=== PATIENT | female | born 1930 | race Caucasian/White ===

== ENCOUNTER → 2016-04-14 | Outpatient (CLI) | payer OTHER, MEDICARE ==
[~2016-04-14] MED LIST: CHOL1000 PO; FERR325T51 PO; ONDA4TAB46 PO; POLY335019 PO; SNK PO; ZOLE5INJ IV
[2016-04-14 13:57] VITALS: BP 144/83; PULSE 87; TEMP 36.7; O2SAT 96
--- NOTE | 2016-04-14 16:12 | Radiation Oncology Follow-Up ---
Radiation Oncology Follow-Up Date of Visit Apr 14, 2016. 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 She was initially treated with a course of antibiotic therapy and had persistence of disease so then she received Rituxan with chemotherapy for 4 cycles. She did continue to have persistence of disease and was then found to have a right upper lobe mass which was also consistent with MALT lymphoma (biopsy proven in January 2011). The patient was closely followed with observation as she was initially asymptomatic. Her most recent PET scan was 05/16/2013 which showed a persistent right upper lobe mass with metabolic activity as well as metabolic activity in the stomach. More recently, the patient was having nausea vomiting and pain in the upper abdomen. She was evaluated by Dr. Court Duenas who performed a upper endoscopy and a endoscopic ultrasound on 06/25/2015 which showed many enlarged lymph nodes in the celiac region as well as wall thickening in the antrum of the stomach. Repeat biopsy was completed in the gastric antrum which showed persistent MALT lymphoma. She did have a MRI of the abdomen completed on 2015 which did show lymphadenopathy in gastric antrum wall thickening compatible with gastric multiple lymphoma. Also noted was distention of the proximal stomach suggestive of at least a partial obstruction. Dr. Stevan Vega has follow the patient and recommended consideration of radiation therapy to the stomach to alleviate the patient's obstructive symptoms. She completed radiation therapy 09/10/2015. She received 3000 cGy. (Mallory Mujica PA-C) Interim History She's been doing well over the past 6 months. She denies any abdominal discomfort. She denies any nausea or vomiting. She's had no change in bowel habits. She is with her daughter here today. She states that she always eats a good dinner. She may eat less for breakfast and lunch. She was seen in follow-up by gastroenterology. Dr. Duenas saw her on 01/22/2016. There is discussion of endoscopy. He was going to review this with oncology. There is no recent endoscopy in the procedure. She was seen by Dr. Vega in medical oncology 01/12/2016. His plan was to continue observation and see her again in 6 months. (Mallory Mujica PA-C) Allergies Coded Allergies: Aspirin (Unverified Adverse Reaction, Severe, bleeding ulcer, 07/24/15) Fish Oil (Unverified Adverse Reaction, Severe, bleeding ulcer, 07/24/15) Ibandronic Acid (Unverified Adverse Reaction, Severe, bleeding ulcer, 07/23) Home Medications Scheduled Cholecalciferol (Vitamin D3), 1 TAB PO DAILY Ferrous Sulfate (Iron Supplement), 1 TAB PO DAILY Ondansetron Hcl (Zofran), 4 MG PO Q8H Senna (Senna Lax), 8.6 MG PO QAM Zoledronic Acid (Reclast), 5 MG IV YEARLY Scheduled PRN Polyethylene Glycol 3350 (Miralax), 17 GM PO DAILY PRN for prn Review of Systems Gastrointestinal: Symptoms: Constipation GI Comments: takes senna daily Oral: Symptoms: No Problems Respiratory: Symptoms: WNL Urinary: Symptoms: Incontinence, Frequency Comments: occ frequency, and has urgency Skin: Symptoms: No Problems (Mallory Mujica PA-C) Physical Exam Vital Signs Date Time Temp Pulse Resp B/P Pulse Ox O2 Delivery O2 Flow Rate FiO2 04/14/16 13:57 36.7 87 16 144/83 96 Pain: Pain Onset: several years ago Pain Duration: comes and goes Side: Bilateral Patient Pain Scale: 0 - 10 Initial Pain Intensity: 1.0 Pain Description: Aching Additional Comments: gets worse at times Fatigue: None General Appearance: no apparent distress Eyes: normal inspection ENT: normal ENT inspection, hearing grossly normal Neck: no adenopathy Respiratory/Chest: lungs clear, no respiratory distress, no accessory muscle use Cardiovascular: regular rate, rhythm, no gallop, no murmur Abdomen: normal bowel sounds, non tender, soft, no organomegaly, no pulsatile mass Extremities: no pedal edema Neurologic/Psychiatric: no motor/sensory deficits, alert, normal mood/affect Skin: warm/dry Lymphatic: no adenopathy (Mallory Mujica PA-C) Assessment & Plan Continue regular follow-up with Dr. Vega in medical oncology. She has appointment to see him in July. A follow-up appointment with our office was not given. She recalls she has any questions or concerns would be happy to see her. She may return if recommended by Dr. Vega. (Mallory Mujica PA-C) I agree with note created by Mallory Mujica PA-C. I reviewed the patient's chart and information with her. (Veeral. Vega MD) Total Time In Follow-Up I spent 15 minutes speaking to the patient performing examination. I spent 15 minutes reviewing information and completing this note. (Mallory Mujica PA-C) Copy To Adrienne Arshad D.O.; Court Duenas, ; Stevan Vega M.D.
== END | disposition home or self-care (01) ==
LOC: C.ONC 13:47
PROVIDERS: ATTEND Radiology Radiation Oncology
DX: Z08 Encounter for follow-up examination after completed treatment for malignant neoplasm (principal); Z92.3 Personal history of irradiation; Z85.72 Personal history of non-Hodgkin lymphomas

== ENCOUNTER 2020-06-07 17:19 | Inpatient (IN) ==
--- NOTE | 2020-06-07 17:28 | Emergency Department Note ---
Impression & Plan Acute ischemic right MCA stroke, Acute UTI, Hypertension ED Provider Note NAME: ALAINA COMBS AGE: 89 SEX: F : 1930 ARRIVES VIA: Ambulance INFORMANT: Patient, ED PROVIDER(S): James Galicia MD Chief Complaint: Confusion, strokelike symptoms HPI: Patient does present via EMS due to concern for strokelike symptoms. The patient reportedly had woken up from a nap just prior to arrival and the patient's last known well was 3:30 PM. Patient does have some baseline confusion but is typically verbally responsive. Upon awakening from her nap the patient was noted to have left-sided facial droop left sided weakness and right gaze preference. The patient does not respond to commands. The patient does m ove her right upper and bilateral lower extremities. BSG prior to arrival was in the 100s. No reported trauma. Patient was hypertensive initially to 209/104. ROS: See HPI for pertinent positives and negatives. A total of 10 systems were reviewed and otherwise negative. Past medical history: See below Surgical history: See below Social history: See below Physical Exam: GENERAL: Mild distress, right gaze preference, left facial droop noted. EYE EXAM: Normal conjunctiva. PERRL, no anisocoria and EOM's grossly intact w/o pain. NECK: Supple, no nuchal rigidity, no adenopathy. No signs of meningismus. LUNGS: Clear to auscultation. Normal chest wall mechanics. HEART: NSR, no MRG. ABDOMEN: Abdomen soft, non-tender, normo-active bowel sounds, no masses, no rebound or guarding. BACK: No CVA TTP. SKIN: No rashes and no bruising. UPPER EXTREMITIES: Upper extremities are grossly normal. LOWER EXTREMITIES: Grossly normal, no edema. NEURO EXAM: Awake, does not follow commands, spontaneous motor movement of the right upper and bilateral lower extremities, left upper extremity paresis with left facial droop and right-sided gaze preference Differential diagnoses: Infection, dehydration, metabolic abnormality, hypo/hyperglycemia, electrolyte disturbance, anemia, hypoxia, cardiac sources, intracerebral event, toxicologic, neurologic, as well as other pathologies. Course: Patient was seen and evaluated the bedside. Full history physical exam was performed. EKG: Indication: Strokelike symptoms Normal sinus rhythm, rate in V5, normal intervals, normal axis, no obvious ST changes or T WI. Imaging Studies: See below Cardiac monitoring: An order was placed for continuous cardiac monitoring. The monitor shows a rate of 84 with sinus rhythm. MDM: I did evaluate the patient at the bedside and upon recognizing the patient strokelike symptoms I did initiate a code stroke. There was no prior EMS: For possible code stroke. The patient symptom onset was approximate 2 hours prior to arrival. I did speak with Dr. Zhang with telestroke neurology at [facility]. Family was to present shortly. The patient did have blood work completed on CT head and CT angiography of the head neck. The patient had a negative Noncon CT of the head. CT angiography of the neck did show a likely mass in the right upper chest. The patient's CT angiography of the head shows a right MCA occlusion. Dr. Ramos had discussed the findings with the patient's daughter who is present at the bedside and the POA. They do not recommend embolectomy or thrombectomy at this time as she is a DNR. The daughter was counseled on the possible increased risk of bleeding either from the chest of the head but she understands this. We also discussed that the patient is DNR/DNI no aggressive measures. The patient's daughter does consent to treat with TPA after discussing the risks and benefits. This was ordered. I did speak with the charge nurse in order to ensure that pharmacy would send it up. Patient has a normal white count H&H and platelet count. BSG was 103. Urinalysis does show the possibility of infection with leuks whites and bacteria. Rocephin was ordered. I did speak with the on-call hospitalist JAYLENE Ruggiero and the patient was admitted by the hospitalist Dr. Brett vazquez. I did reassess the patient several times and the patient was having some mild improvement in her left upper extremity weakness. Critical Care: I have personally spent 65 minutes of critical care time in direct management of this patient. This includes bedside care, interpretation of diagnostic studies, and testing, discussion with consultants, patient, and family members, and other require inpatient management activities. This 65 minutes is in excess of all separately billable procedures. 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" Social History Smoking Status: Unknown if ever smoked Preferred Language: Estonian Allergies Allergies Allergy/AdvReac Type Severity Reaction Status Date / Time aspirin AdvReac Severe bleeding Unverified 06/07/20 18:43 ulcer fish oil AdvReac Severe bleeding Unverified 06/07/20 18:43 ulcer Ibandronic Acid AdvReac Severe bleeding Uncoded 06/07/20 18:43 ulcer Home Meds Home Medications Medication Instructions Recorded Confirmed cholecalciferol (vitamin D3) 25 mcg PO QAM 06/07/20 06/07/20 [Vitamin D3] ferrous sulfate 325 mg PO QAM 06/07/20 06/07/20 memantine 10 mg PO BID 06/07/20 06/07/20 pantoprazole 40 mg PO QAM 06/07/20 06/07/20 sennosides [senna] 4.3 mg PO 3XWK 06/07/20 06/07/20 Results & Data (ED) Vital Signs Vital Signs - 24 hr 06/07/20 17:20 06/07/20 17:25 06/07/20 17:27 Temperature 36.5 C Temperature Source Oral Pulse Rate 100 H 96 H Pulse Rate from SpO2 Sensor 98 H Respiratory Rate 18 Respiratory Effort / Characteristics Non-Labored Spontaneous Respiratory Depth Normal Blood Pressure 209/104 H Blood Pressure [Left Arm] Blood Pressure Mean 139 Blood Pressure Mean [Left Arm] Blood Pressure Position Lying Blood Pressure Position [Left Arm] Pulse Oximetry 97 97 Oxygen Delivery Method Room Air Room Air Sepsis Recent Fever Within 48 Hours No Sepsis New/Unexplained Change in Mental Status No Sepsis Action Taken by Nursing No Action Required 06/07/20 17:30 06/07/20 17:40 06/07/20 18:00 Temperature Temperature Source Pulse Rate 95 H 87 89 Pulse Rate from SpO2 Sensor 84 85 93 H Respiratory Rate 17 19 15 Respiratory Effort / Characteristics Respiratory Depth Blood Pressure Blood Pressure [Left Arm] Blood Pressure Mean Blood Pressure Mean [Left Arm] Blood Pressure Position Blood Pressure Position [Left Arm] Pulse Oximetry 99 97 98 Oxygen Delivery Method Sepsis Recent Fever Within 48 Hours Sepsis New/Unexplained Change in Mental Status Sepsis Action Taken by Nursing 06/07/20 18:01 06/07/20 18:02 06/07/20 18:11 Temperature Temperature Source Pulse Rate 88 90 Pulse Rate from SpO2 Sensor 89 88 Respiratory Rate 18 17 Respiratory Effort / Characteristics Respiratory Depth Blood Pressure 167/98 H 173/75 H Blood Pressure [Left Arm] 168/98 H Blood Pressure Mean 121 107 Blood Pressure Mean [Left Arm] 121 Blood Pressure Position Blood Pressure Position [Left Arm] Lying Pulse Oximetry 97 98 Oxygen Delivery Method Sepsis Recent Fever Within 48 Hours Sepsis New/Unexplained Change in Mental Status Sepsis Action Taken by Nursing 06/07/20 18:15 06/07/20 18:30 06/07/20 18:33 Temperature Temperature Source Pulse Rate 84 85 80 Pulse Rate from SpO2 Sensor 83 84 80 Respiratory Rate 16 14 19 Respiratory Effort / Characteristics Respiratory Depth Blood Pressure 172/117 H Blood Pressure [Left Arm] Blood Pressure Mean 135 Blood Pressure Mean [Left Arm] Blood Pressure Position Blood Pressure Position [Left Arm] Pulse Oximetry 96 92 92 Oxygen Delivery Method Sepsis Recent Fever Within 48 Hours Sepsis New/Unexplained Change in Mental Status Sepsis Action Taken by Nursing 06/07/20 18:41 06/07/20 18:45 06/07/20 18:46 Temperature Temperature Source Pulse Rate 75 73 75 Pulse Rate from SpO2 Sensor 74 76 75 Respiratory Rate 17 15 20 Respiratory Effort / Characteristics Respiratory Depth Blood Pressure 154/72 H 167/83 H Blood Pressure [Left Arm] Blood Pressure Mean 99 111 Blood Pressure Mean [Left Arm] Blood Pressure Position Blood Pressure Position [Left Arm] Pulse Oximetry 95 93 95 Oxygen Delivery Method Sepsis Recent Fever Within 48 Hours Sepsis New/Unexplained Change in Mental Status Sepsis Action Taken by Nursing 06/07/20 18:51 06/07/20 18:52 06/07/20 18:55 Temperature Temperature Source Pulse Rate 76 77 76 Pulse Rate from SpO2 Sensor 77 76 77 Respiratory Rate 18 19 17 Respiratory Effort / Characteristics Respiratory Depth Blood Pressure 158/79 H Blood Pressure [Left Arm] Blood Pressure Mean 105 Blood Pressure Mean [Left Arm] Blood Pressure Position Blood Pressure Position [Left Arm] Pulse Oximetry 95 96 96 Oxygen Delivery Method Sepsis Recent Fever Within 48 Hours Sepsis New/Unexplained Change in Mental Status Sepsis Action Taken by Nursing 06/07/20 18:56 06/07/20 19:00 06/07/20 19:05 Temperature Temperature Source Pulse Rate 72 75 75 Pulse Rate from SpO2 Sensor 76 77 75 Respiratory Rate 17 18 17 Respiratory Effort / Characteristics Respiratory Depth Blood Pressure 163/82 H 169/92 H Blood Pressure [Left Arm] Blood Pressure Mean 109 117 Blood Pressure Mean [Left Arm] Blood Pressure Position Blood Pressure Position [Left Arm] Pulse Oximetry 97 97 97 Oxygen Delivery Method Room Air Sepsis Recent Fever Within 48 Hours Sepsis New/Unexplained Change in Mental Status Sepsis Action Taken by Nursing 06/07/20 19:06 06/07/20 19:10 06/07/20 19:11 Temperature Temperature Source Pulse Rate 76 79 81 Pulse Rate from SpO2 Sensor 74 77 81 Respiratory Rate 15 15 17 Respiratory Effort / Characteristics Respiratory Depth Blood Pressure 148/76 H 168/97 H Blood Pressure [Left Arm] Blood Pressure Mean 100 120 Blood Pressure Mean [Left Arm] Blood Pressure Position Blood Pressure Position [Left Arm] Pulse Oximetry 97 97 96 Oxygen Delivery Method Sepsis Recent Fever Within 48 Hours Sepsis New/Unexplained Change in Mental Status Sepsis Action Taken by Nursing 06/07/20 19:15 06/07/20 19:17 06/07/20 19:18 Temperature Temperature Source Pulse Rate 76 80 74 Pulse Rate from SpO2 Sensor 76 77 76 Respiratory Rate 17 14 21 Respiratory Effort / Characteristics Respiratory Depth Blood Pressure 171/64 H Blood Pressure [Left Arm] Blood Pressure Mean 99 Blood Pressure Mean [Left Arm] Blood Pressure Position Blood Pressure Position [Left Arm] Pulse Oximetry 96 96 96 Oxygen Delivery Method Sepsis Recent Fever Within 48 Hours Sepsis New/Unexplained Change in Mental Status Sepsis Action Taken by Nursing 06/07/20 19:20 06/07/20 19:21 06/07/20 19:25 Temperature Temperature Source Pulse Rate 78 79 77 Pulse Rate from SpO2 Sensor 77 78 78 Respiratory Rate 18 14 16 Respiratory Effort / Characteristics Respiratory Depth Blood Pressure 174/86 H Blood Pressure [Left Arm] Blood Pressure Mean 115 Blood Pressure Mean [Left Arm] Blood Pressure Position Blood Pressure Position [Left Arm] Pulse Oximetry 96 96 95 Oxygen Delivery Method Sepsis Recent Fever Within 48 Hours Sepsis New/Unexplained Change in Mental Status Sepsis Action Taken by Nursing 06/07/20 19:29 06/07/20 19:30 06/07/20 19:31 Temperature Temperature Source Pulse Rate 76 80 75 Pulse Rate from SpO2 Sensor 76 80 75 Respiratory Rate 16 16 16 Respiratory Effort / Characteristics Respiratory Depth Blood Pressure 170/68 H 180/79 H Blood Pressure [Left Arm] Blood Pressure Mean 102 112 Blood Pressure Mean [Left Arm] Blood Pressure Position Blood Pressure Position [Left Arm] Pulse Oximetry 95 96 95 Oxygen Delivery Method Sepsis Recent Fever Within 48 Hours Sepsis New/Unexplained Change in Mental Status Sepsis Action Taken by Nursing 06/07/20 19:35 06/07/20 19:40 Temperature Temperature Source Pulse Rate 75 76 Pulse Rate from SpO2 Sensor 76 75 Respiratory Rate 16 15 Respiratory Effort / Characteristics Respiratory Depth Blood Pressure 148/78 H Blood Pressure [Left Arm] Blood Pressure Mean 101 Blood Pressure Mean [Left Arm] Blood Pressure Position Blood Pressure Position [Left Arm] Pulse Oximetry 94 94 Oxygen Delivery Method Room Air Sepsis Recent Fever Within 48 Hours Sepsis New/Unexplained Change in Mental Status Sepsis Action Taken by [facility]dc Medications Current Medication List: was personally reviewed by me Laboratory Data Attestation: I reviewed the patient's lab results. Result diagrams: 06/07/20 17:50 06/07/20 17:50 Lab Results 06/07/20 06/07/20 06/07/20 Range/Units 17:30 17:30 17:50 WBC 10.38 (4.8-10.8) K/uL RBC 4.40 (4.2-5.4) M/uL Hgb 14.3 (12.0-16.0) g/dL Hct 42.0 (37-47) % MCV 95.5 (80-100) fL MCH 32.5 (25-34) pg MCHC 34.0 (32-36) g/dL RDW Std Deviation 47.4 H (36.4-46.3) fL RDW Coeff of Marisela 13.4 (11.5-14.5) % Plt Count 281 (130-400) K/uL MPV 12.1 H (7.4-10.4) fL Immature Gran % (Auto) 0.4 % Neut % (Auto) 74.3 % Lymph % (Auto) 14.1 % [place] % (Auto) 9.3 % Eos % (Auto) 1.6 % Baso % (Auto) 0.3 % Neut # (Auto) 7.71 H (1.4-6.5) K/uL Lymph # (Auto) 1.46 (1.2-3.4) K/uL [place] # (Auto) 0.97 H (0.11-0.59) K/uL Eos # (Auto) 0.17 (0-0.5) K/uL Baso # (Auto) 0.03 (0-0.2) K/uL Immature Gran # (Auto) 0.04 H (0.00-0.02) K/uL PT (9.0-12.0) Seconds INR (0.9-1.1) APTT (21.0-31.0) Seconds PTT Ratio Sodium (136-145) mmol/L Potassium (3.5-5.1) mmol/L Chloride (98-107) mmol/L Carbon Dioxide (21-32) mmol/L Anion Gap (3-11) BUN (7-18) mg/dl Creatinine (0.6-1.2) mg/dl Est Cr Clr Drug Dosing ml/min Est GFR ( Amer) Est GFR (Non-Af Amer) BUN/Creatinine Ratio (10-20) Glucose (70-99) mg/dl POC Glucose 103 H (70-99) mg/dl Calcium (8.5-10.1) mg/dl Magnesium (1.8-2.4) mg/dl Total Bilirubin (0.2-1) mg/dl AST (15-37) U/L ALT (12-78) U/L Alkaline Phosphatase (45-117) U/L Troponin I (0-0.045) ng/ml Total Protein (6.4-8.2) gm/dl Albumin (3.4-5.0) gm/dl Globulin (2.5-4.0) gm/dl Albumin/Globulin Ratio (0.9-2) Urine Color Yellow Urine Appearance Clear (Clear) Urine pH 6.5 (4.5-7.5) Ur Specific [place] 1.010 (1.000-1.030) Urine Protein Negative (Negative) Urine Glucose (UA) Negative (Negative) Urine Ketones Negative (Negative) Urine Blood Trace H (Negative) Urine Nitrite Negative (Negative) Urine Bilirubin Negative (Negative) Urine Urobilinogen Negative (Negative) Ur Leukocyte Esterase 2+ H (Negative) Urine WBC (Auto) >30 H (0-5) /hpf Urine RBC (Auto) 0-4 (0-4) /hpf U Hyaline Cast (Auto) 1-5 (0-5) /lpf U Epithel Cells (Auto) 5-10 H (0-5) /lpf Urine Bacteria (Auto) 1+ H (Negative) COVID-19 Eval Order 06/07/20 06/07/20 06/07/20 Range/Units 17:50 17:50 18:55 WBC (4.8-10.8) K/uL RBC (4.2-5.4) M/uL Hgb (12.0-16.0) g/dL Hct (37-47) % MCV (80-100) fL MCH (25-34) pg MCHC (32-36) g/dL RDW Std Deviation (36.4-46.3) fL RDW Coeff of Marisela (11.5-14.5) % Plt Count (130-400) K/uL MPV (7.4-10.4) fL Immature Gran % (Auto) % Neut % (Auto) % Lymph % (Auto) % [place] % (Auto) % Eos % (Auto) % Baso % (Auto) % Neut # (Auto) (1.4-6.5) K/uL Lymph # (Auto) (1.2-3.4) K/uL [place] # (Auto) (0.11-0.59) K/uL Eos # (Auto) (0-0.5) K/uL Baso # (Auto) (0-0.2) K/uL Immature Gran # (Auto) (0.00-0.02) K/uL PT 9.8 (9.0-12.0) Seconds INR 1.0 (0.9-1.1) APTT 22.3 (21.0-31.0) Seconds PTT Ratio 0.8 Sodium 142 (136-145) mmol/L Potassium 4.1 (3.5-5.1) mmol/L Chloride 109 H (98-107) mmol/L Carbon Dioxide 30 (21-32) mmol/L Anion Gap 3.0 (3-11) BUN 19 H (7-18) mg/dl Creatinine 1.35 H (0.6-1.2) mg/dl Est Cr Clr Drug Dosing 24.4 ml/min Est GFR ( Amer) 40.2 Est GFR (Non-Af Amer) 34.7 BUN/Creatinine Ratio 14.3 (10-20) Glucose 124 H (70-99) mg/dl POC Glucose (70-99) mg/dl Calcium 9.8 (8.5-10.1) mg/dl Magnesium 2.6 H (1.8-2.4) mg/dl Total Bilirubin 0.6 (0.2-1) mg/dl AST 24 (15-37) U/L ALT 32 (12-78) U/L Alkaline Phosphatase 154 H (45-117) U/L Troponin I < 0.015 (0-0.045) ng/ml Total Protein 7.9 (6.4-8.2) gm/dl Albumin 3.4 (3.4-5.0) gm/dl Globulin 4.5 H (2.5-4.0) gm/dl Albumin/Globulin Ratio 0.8 L (0.9-2) Urine Color Urine Appearance (Clear) Urine pH (4.5-7.5) Ur Specific [place] (1.000-1.030) Urine Protein (Negative) Urine Glucose (UA) (Negative) Urine Ketones (Negative) Urine Blood (Negative) Urine Nitrite (Negative) Urine Bilirubin (Negative) Urine Urobilinogen (Negative) Ur Leukocyte Esterase (Negative) Urine WBC (Auto) (0-5) /hpf Urine RBC (Auto) (0-4) /hpf U Hyaline Cast (Auto) (0-5) /lpf U Epithel Cells (Auto) (0-5) /lpf Urine Bacteria (Auto) (Negative) COVID-19 Eval Order CovFluRsv at [facility] Administered Medications Labetalol HCl (Labetalol Hcl Iv 5 Mg/Ml 20ml) 10 mg IV Q10M PRN PRN Reason: SBP above 185 or DBP above 110 Last Admin: 06/07/20 18:37 Dose: 10 mg Documented by: [id number] Cosigned by: [id number] Discontinued Medications Alteplase, Recombinant (Tpa For Stroke) 1 ea IV NOW STA; Protocol Stop: 06/07/20 18:23 Last Admin: 06/07/20 18:48 Dose: 1 ea Documented by: [id number] Alteplase, Recombinant 5.2 mg/ (Syringe) 5.2 mls @ 5.2 mls/min IV ONCE ONE Stop: 06/07/20 18:33 Last Admin: 06/07/20 18:48 Dose: 5.2 mls/min Documented by: [id number] Cosigned by: [id number] Alteplase, Recombinant 48 mg/ (EMPTY BAG) 48 mls @ 48 mls/hr IV ONCE ONE Stop: 06/07/20 18:34 Last Admin: 06/07/20 18:43 Dose: 48 mls/hr Documented by: [id number] Cosigned by: [id number] Ceftriaxone Sodium (Rocephin) 2,000 mg in 70 mls @ 140 mls/hr IV NOW STA Stop: 06/07/20 18:56 Last Infusion: 06/07/20 19:20 Dose: 0 mls/hr Documented by: [id number] Admin: 06/07/20 18:49 Dose: 140 mls/hr Documented by: [id number] Ioversol (Optiray 320 125ml) 119 ml IV ONCE ONE Stop: 06/07/20 17:52 Last Admin: 06/07/20 17:52 Dose: 119 ml Documented by: [id number] Labetalol HCl (Labetalol Hcl Iv 5 Mg/Ml 20ml) 10 mg IV NOW STA Stop: 06/07/20 17:37 Last Admin: 06/07/20 17:46 Dose: 10 mg Documented by: [id number] Cosigned by: [id number] Imaging Data Radiologist's Impression: Head CT 06/07/20 17:35 CT head/brain wo con CLINICAL HISTORY: Stroke Like Symptoms LEFT-SIDED WEAKNESS. LEFT FACIAL TRUE. SLURRED SPEECH. COMPARISON STUDY: Noncontrast head CT dated 02/21/2015 TECHNIQUE: Axial CT of the brain is performed from the vertex to the skull base. IV contrast was not administered for this examination. A dose lowering technique was utilized adhering to the principles of ALARA. CT DOSE: FINDINGS: No intra or extra-axial mass lesions are visualized. There is no CT evidence of acute cortical infarction. There is no evidence of midline shift. There is no acute hemorrhage. No calvarial fractures are visualized. There are moderate white matter hypodensities likely on a small vessel basis. There is an old left occipital infarct which was not visualized February 2015. There is an old left cerebellar infarct. There is mild ventricular dilatation, likely secondary to volume loss. There is no evidence of acute sinusitis IMPRESSION: 1. No acute intracranial findings 2. Old infarcts involving the left occipital lobe and left cerebellum ACT 112: Negative or not required by law. Electronically signed by: Dany Lutz M.D. 06/07/2020 6:06 PM Head CTA 06/07/20 17:35 CT angio head w con CLINICAL HISTORY: Stroke Like Symptoms LEFT-SIDED WEAKNESS LEFT FACIAL DROOP SLURRED SPEECH TECHNIQUE: CT angiography of the head was performed in a dynamic helical fashion during intravenous administration of 119 cc of Optiray 320. MIP imaging was performed. A dose lowering technique was utilized adhering to the principles of ALARA. CT DOSE: COMPARISON STUDY: No previous studies for comparison. FINDINGS: There is an abrupt occlusion of the right middle cerebral artery proximal to the bifurcation/trifurcation at the sylvian fissure level. There are no lesion suspicious for aneurysm. IMPRESSION: 1. Occlusion of the right middle cerebral artery at the level of sylvian fissure. ACT 112: Negative or not required by law. Electronically signed by: Dany Lutz M.D. 06/07/2020 6:21 PM Neck CTA 06/07/20 17:35 CT angio neck with con CLINICAL HISTORY: Stroke Like Symptoms COMPARISON STUDY: Chest CT performed February 2014 TECHNIQUE: CT angiography was performed from the aortic arch to the skull base. MIP imaging was performed. The patient was scanned in a dynamic helical fashion during intravenous administration of 119 cc of Optiray 320. A dose lowering technique was utilized adhering to the principles of ALARA. CT DOSE: 1293.98 mGy.cm Technique: CT angiogram of the carotid and vertebral arteries was obtained using intravenous contrast and 3-D reconstruction. NASCET criteria was utilized. Findings: There is an enlarging 57 mm area of masslike consolidation within the right upper lobe. Nonemergent pulmonary consultation is recommended. There is a multinodular thyroid gland. Nodules up to 9 mm on diameter are visualized. In a patient this age, further follow-up is not currently recommended There is dense calcific plaque at the level of the right carotid bulb. This results in a less than 40% diameter stenosis. There is calcific plaque involving the proximal left internal carotid artery resulting in a less than 40% diameter stenosis. There is mild nonhemodynamically significant left vertebral artery narrowing secondary to uncovertebral joint spurring. There is no evidence of hemodynamically significant right vertebral artery stenosis. There is no evidence of vertebral dissection IMPRESSION: 1. No evidence of hemodynamically significant carotid or vertebral artery stenosis. No evidence of dissection. 2. Enlarging 27 mm area of masslike consolidation within the right lung apex. Nonemergent pulmonary consultation is recommended in follow-up ACT 112: Positive. There are findings on this exam that require communication between the performing entity and the patient following Patient Test Result Information Act ([place] Act 112) guidelines. Electronically signed by: Dany Lutz M.D. 06/07/2020 6:15 PM Discharge Plan Visit Data Chief Complaint: Altered Mental Status Stated Complaint: AMS, CONFUSION, STROKE SX ED Provider: James Galicia Discharge Problem: Acute ischemic right MCA stroke, Acute UTI, Hypertension Forms Stand Alone Forms: [employer] Prescriptions Prescriptions: No Action sennosides [senna] 8.6 mg Tablet 4.3 mg PO [id number] RF: 0 pantoprazole 40 mg tablet,delayed release (DR/EC) 40 mg PO QAM RF: 0 ferrous sulfate 325 mg (65 mg iron) tablet 325 mg PO QAM RF: 0 memantine 10 mg tablet 10 mg PO BID RF: 0 cholecalciferol (vitamin D3) [Vitamin D3] 25 mcg (1,000 unit) Tablet 25 mcg PO QAM RF: 0 Discharge Problem: Hypertension Qualifiers: Hypertension type: unspecified Qualified Code(s): I10 - Essential (primary) hypertension
[2020-06-07] MEDS ORDERED: LABETALOL HCL IV 5 MG/ML 20ML IV STA (17:36)
[2020-06-07] MEDS ORDERED: OPTIRAY 320 125ml IV ONE (17:51)
[2020-06-07 17:52] LABS: Appearance Urine Clear (Clear); Bacteria Urine Automated 1+ (Negative); Bilirubin Urine Negative (Negative); Blood Urine Trace (Negative); Color Urine Yellow; Glucose Urine UA Negative (Negative); Ketones Urine Negative (Negative); Leukocyte Esterase Urine 2+ (Negative); Nitrite Urine Negative (Negative); Protein Urine Negative (Negative); RBC Urine Automated 0-4 /hpf (0-4); Urobilinogen Urine Negative (Negative); WBC Urine Automated >30 /hpf (0-5); pH Urine 6.5 (4.5-7.5)
--- NOTE | 2020-06-07 18:08 | CT Scan Report ---
CT head/brain wo con CLINICAL HISTORY: Stroke Like Symptoms LEFT-SIDED WEAKNESS. LEFT FACIAL TRUE. SLURRED SPEECH. COMPARISON STUDY: Noncontrast head CT dated 02/21/2015 TECHNIQUE: Axial CT of the brain is performed from the vertex to the skull base. IV contrast was not administered for this examination. A dose lowering technique was utilized adhering to the principles of ALARA. CT DOSE: FINDINGS: No intra or extra-axial mass lesions are visualized. There is no CT evidence of acute cortical infarc tion. There is no evidence of midline shift. There is no acute hemorrhage. No calvarial fractures ar e visualized. There are moderate white matter hypodensities likely on a small vessel basis. There is an old left oc cipital infarct which was not visualized February 2015. There is an old left cerebellar infarct. There is mild ventricular dilatation, likely secondary to volume loss. There is no evidence of acute sinusitis IMPRESSION: 1. No acute intracranial findings 2. Old infarcts involving the left occipital lobe and left cerebellum ACT 112: Negative or not required by law. Electronically signed by: Dany Lutz M.D. 06/07/2020 6:06 PM
[2020-06-07 18:09] LABS: Basophils # (auto) 0.03 K/uL (0-0.2); Basophils % (auto) 0.3 %; Eosinophils # (auto) 0.17 K/uL (0-0.5); Eosinophils % (auto) 1.6 %; Hemoglobin 14.3 g/dL (12.0-16.0); Immature Granulocytes # (auto) 0.04 K/uL (0.00-0.02); Immature Granulocytes % (auto) 0.4 %; Lymphocytes # (auto) 1.46 K/uL (1.2-3.4); Lymphocytes % (auto) 14.1 %; Mean Corpuscular Hemoglobin 32.5 pg (25-34); Mean Corpuscular Volume 95.5 fL (80-100); Mean Platelet Volume 12.1 fL (7.4-10.4); Monocytes # (auto) 0.97 K/uL (0.11-0.59); Monocytes % (auto) 9.3 %; Neutrophils # (auto) 7.71 K/uL (1.4-6.5); Neutrophils % (auto) 74.3 %; Platelet Count 281 K/uL (130-400); RDW Coefficient of Variation 13.4 % (11.5-14.5); RDW Standard Deviation 47.4 fL (36.4-46.3); White Blood Count 10.38 K/uL (4.8-10.8)
[2020-06-07 18:10] LABS: Partial Thromboplastin Ratio 0.8; Partial Thromboplastin Time 22.3 Seconds (21.0-31.0); Prothrombin Time 9.8 Seconds (9.0-12.0)
--- NOTE | 2020-06-07 18:16 | CT Scan Report ---
CT angio neck with con CLINICAL HISTORY: Stroke Like Symptoms COMPARISON STUDY: Chest CT performed February 2014 TECHNIQUE: CT angiography was performed from the aortic arch to the skull base. MIP imaging was perfo rmed. The patient was scanned in a dynamic helical fashion during intravenous administration of 119 c c of Optiray 320. A dose lowering technique was utilized adhering to the principles of ALARA. CT DOSE: 1293.98 mGy.cm Technique: CT angiogram of the carotid and vertebral arteries was obtained using intravenous contrast and 3-D reconstruction. NASCET criteria was utilized. Findings: There is an enlarging 57 mm area of masslike consolidation within the right upper lobe. Nonemergent p ulmonary consultation is recommended. There is a multinodular thyroid gland. Nodules up to 9 mm on diameter are visualized. In a patient th is age, further follow-up is not currently recommended There is dense calcific plaque at the level of the right carotid bulb. This results in a less than 40 % diameter stenosis. There is calcific plaque involving the proximal left internal carotid artery resulting in a less than 40% diameter stenosis. There is mild nonhemodynamically significant left vertebral artery narrowing secondary to uncovertebr al joint spurring. There is no evidence of hemodynamically significant right vertebral artery stenosi s. There is no evidence of vertebral dissection IMPRESSION: 1. No evidence of hemodynamically significant carotid or vertebral artery stenosis. No evidence of di ssection. 2. Enlarging 27 mm area of masslike consolidation within the right lung apex. Nonemergent pulmonary c onsultation is recommended in follow-up ACT 112: Positive. There are findings on this exam that require communication between the performing entity and the patient following Patient Test Result Information Act ([place] Act 112) guidelines. Electronically signed by: Dany Lutz M.D. 06/07/2020 6:15 PM
[2020-06-07] MEDS ORDERED: TPA for Stroke IV STA (18:22)
--- NOTE | 2020-06-07 18:22 | CT Scan Report ---
CT angio head w con CLINICAL HISTORY: Stroke Like Symptoms LEFT-SIDED WEAKNESS LEFT FACIAL DROOP SLURRED SPEECH TECHNIQUE: CT angiography of the head was performed in a dynamic helical fashion during intravenous a dministration of 119 cc of Optiray 320. MIP imaging was performed. A dose lowering technique was util ized adhering to the principles of ALARA. CT DOSE: COMPARISON STUDY: No previous studies for comparison. FINDINGS: There is an abrupt occlusion of the right middle cerebral artery proximal to the bifurcatio n/trifurcation at the sylvian fissure level. There are no lesion suspicious for aneurysm. IMPRESSION: 1. Occlusion of the right middle cerebral artery at the level of sylvian fissure. ACT 112: Negative or not required by law. Electronically signed by: Dany Lutz M.D. 06/07/2020 6:21 PM
[2020-06-07] MEDS ORDERED: cefTRIAXone SODIUM 2,000 MG/70 ML BAG IV STA (18:27)
[2020-06-07] MEDS ORDERED: LABETALOL HCL IV 5 MG/ML 20ML IV PRN (18:28)
[2020-06-07 18:30] LABS: Alanine Aminotransferase 32 U/L (12-78); Albumin Level 3.4 gm/dl (3.4-5.0); Aspartate Aminotransferase 24 U/L (15-37); BUN Creatinine Ratio 14.3 (10-20); Blood Urea Nitrogen 19 mg/dl (7-18); Calcium 9.8 mg/dl (8.5-10.1); Carbon Dioxide 30 mmol/L (21-32); Chloride 109 mmol/L (98-107); Creatinine Clr Calc Pharmacy 24.4 ml/min; Est GFR (African American) 40.2; Est GFR (Non-African American) 34.7; Glucose 124 mg/dl (70-99); Magnesium 2.6 mg/dl (1.8-2.4); Potassium 4.1 mmol/L (3.5-5.1); Sodium 142 mmol/L (136-145)
[2020-06-07] MEDS ORDERED: No Aspirin within 24 hrs of TPA for Stroke PO SCH (18:30)
[2020-06-07] MEDS ORDERED: ALTEPLASE BOLUS IV ONE (18:32)
[2020-06-07] MEDS ORDERED: ALTEPLASE IV ONE (18:33)
[2020-06-07] MEDS ORDERED: PRIMARY PLUMSET, PE LINED TUBING, 113 IN, NON-DEHP (2260-0500) IV ONE (18:33)
[2020-06-07] MEDS ORDERED: RECOMBINANT IV ONE (18:33)
[2020-06-07 18:35] LABS: Albumin Globulin Ratio 0.8 (0.9-2); Alkaline Phosphatase 154 U/L (45-117); Bilirubin,Total 0.6 mg/dl (0.2-1); Globulin 4.5 gm/dl (2.5-4.0); Total Protein 7.9 gm/dl (6.4-8.2); Troponin I < 0.015 ng/ml (0-0.045)
[2020-06-07 19:50] LABS: Influenza A virus by PCR Negative (Neg); Influenza B virus by PCR Negative (Neg); RSV by PCR Negative (Neg); SARS CoV2 RNA(COVID-19) InHosp NEGATIVE (Negative)
--- NOTE | 2020-06-07 20:20 | History & Physical Report ---
Date of Service June 07, 2020 Assessment & Plan (1) Acute ischemic right MCA stroke: -Admit to ICU -Patient presenting from home for evaluation of left-sided weakness and garbled speech. Daughter reports patient has advanced dementia at baseline. -In the ED, head CTA shows right MCA occlusion. Stroke alert was called and patient received TPA. -Daughter reports the patient is a DNR/DNI, no aggressive measures are to be performed including central line placement, pressors, invasive procedures. -Symptoms seem to be improving after TPA -Maintain systolic blood pressure < 180 -Repeat head CT in 24 hours -Neurochecks -N.p.o. 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 -S/p Rituxan therapy 2010, radiation therapy to the stomach 2015 -PET scan 2013 showed right upper lobe lung mass 3.4 cm x 2.4 cm -Right upper lobe mass noted on neck CT today measured 27 mm -Under observation, no active treatment (5) CKD (chronic kidney disease), stage III: -Baseline creatinine runs in the mid 1's -Noted to be 1.3 today -Avoid nephrotoxic agents when able, follow renal functions (6) DVT prophylaxis: -SCDs due to receiving TPA History of Present Illness Chief Complaint: Left-sided weakness, garbled speech Primary Care Provider: Tevin Chambers DO 89-year-old female with PMH dementia, CKD stage III, diet-controlled DM, MALT lymphoma involving the stomach and right upper lobe of the lung, and other problems listed below who presents to the ED for evaluation of left-sided weakness and garbled speech. History is unobtainable from the patient. Daughter is the bedside who provides the history. She reports the patient has very advanced dementia at baseline. Typically patient will ambulate with a walker. This afternoon, daughter reports she heard the patient attempting to get out of bed. When she went to check on her, she noted she was not moving the left side of her body and her speech was very garbled. Patient was then brought to the ED for further evaluation. In the ED, head CTA shows Occlusion of the right middle cerebral artery. Stroke alert was called and patient received TPA. Labs are unremarkable. UA suggest possible UTI. Patient was given IV ceftriaxone. Allergies Allergy/AdvReac Type Severity Reaction Status Date / Time aspirin AdvReac Severe bleeding Unverified 06/07/20 18:43 ulcer fish oil AdvReac Severe bleeding Unverified 06/07/20 18:43 ulcer Ibandronic Acid AdvReac Severe bleeding Uncoded 06/07/20 18:43 ulcer Home Medications Medication Instructions Recorded Confirmed Type atorvastatin 40 mg PO DAILY 06/07/20 06/07/20 History cholecalciferol (vitamin D3) 25 mcg PO QAM 06/07/20 06/07/20 History [Vitamin D3] ferrous sulfate 325 mg PO QAM 06/07/20 06/07/20 History hydroxyzine HCl 25 mg PO TID PRN 06/07/20 06/07/20 History memantine 10 mg PO BID 06/07/20 06/07/20 History pantoprazole 40 mg PO QAM 06/07/20 06/07/20 History sennosides [senna] 4.3 mg PO 3XWK 06/07/20 06/07/20 History Past Med/Surg History Medical History CKD (chronic kidney disease), stage III Dementia Diet-controlled type 2 diabetes mellitus HLD (hyperlipidemia) HTN (hypertension) MALT lymphoma (06/26/10) "DIAGNOSIS: Gastric MALT Lymphoma, 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 Status post completion of radiation therapy 09/10/2015 received 3000 cGy" On 09/22/15 14:15 Mallory Mujica wrote "DIAGNOSIS: Gastric MALT Lymphoma, 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 Status post completion of radiation therapy 09/10/2015 received 3000 cGy" On 07/24/15 11:44 Rose Vega wrote "DIAGNOSIS: Gastric MALT Lymphoma, 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" Family History Brother Stroke Social History Smoking Status: Never smoker Hx Alcohol Use: No Hx Substance Use: No Preferred Language: Amharic Communication Ability: Effective Bank Teller Required: No Beliefs That Will Affect Care: None Current Living Situation: Family Current Living Situation Comment: lives with daughter Other Information That Helps Us Care for You: No Feels Safe at Home: Yes Safety Concerns: Feels Safe At This Time Review of Systems Review of Systems: Unobtainable due to cognitive status Physical Exam Constitutional: WD/WN, vitals as above Eyes: PERRL, conjunctivae normal, anicteric sclerae ENMT: external ear and nose normal, oropharynx normal Respiratory: normal respiratory effort, lungs clear to auscultation Cardiovascular: Rate/Rhythm: regular rate and regular rhythm Vessels: normal peripheral pulses Extremities: no edema Gastrointestinal (Abdomen): normal bowel sounds, soft, nontender, no hepatosplenomegaly Musculoskeletal: Extremities: no cyanosis and no clubbing Does not appropriately follow commands to test strength Skin: no rashes, warm and dry Neurologic: awake; + does not move all extremities Speech / Cognition: + abnormal speech (Garbled speech) Cranial Nerves: PERRL; + EOM not intact (Right-sided gaze) Left-sided neglect, does not follow commands to complete neurologic exam, moving right arm and leg, squeezes with right hand, not moving left leg,+ strength in left arm with resistance however no purposeful movement Psychiatric: Orientation: alert; + not oriented x 3 Results & Data Results & Data ([facility]) Vital Signs (Past 12 Hours) Vital Signs Temp Pulse Resp BP BP Pulse Ox 06/07/20 19:51 77 15 95 06/07/20 19:50 75 19 148/74 H 94 06/07/20 19:46 76 16 95 06/07/20 19:45 77 13 128/73 93 06/07/20 19:42 73 14 145/78 H 94 06/07/20 19:40 76 15 94 06/07/20 19:35 75 16 148/78 H 94 06/07/20 19:31 75 16 95 06/07/20 19:30 80 16 180/79 H 96 06/07/20 19:29 76 16 170/68 H 95 06/07/20 19:25 77 16 95 06/07/20 19:21 79 14 174/86 H 96 06/07/20 19:20 78 18 96 06/07/20 19:18 74 21 96 06/07/20 19:17 80 14 171/64 H 96 06/07/20 19:15 76 17 96 06/07/20 19:11 81 17 168/97 H 96 06/07/20 19:10 79 15 97 06/07/20 19:06 76 15 148/76 H 97 06/07/20 19:05 75 17 97 06/07/20 19:00 75 18 169/92 H 97 06/07/20 18:56 72 17 163/82 H 97 06/07/20 18:55 76 17 96 06/07/20 18:52 77 19 96 06/07/20 18:51 76 18 158/79 H 95 06/07/20 18:46 75 20 167/83 H 95 06/07/20 18:45 73 15 93 06/07/20 18:41 75 17 154/72 H 95 06/07/20 18:33 80 19 172/117 H 92 06/07/20 18:30 85 14 92 06/07/20 18:15 84 16 96 06/07/20 18:11 90 17 173/75 H 98 06/07/20 18:02 168/98 H 06/07/20 18:01 88 18 167/98 H 97 06/07/20 18:00 89 15 98 06/07/20 17:40 87 19 97 06/07/20 17:30 95 H 17 99 06/07/20 17:27 36.5 C 96 H 18 209/104 H 97 06/07/20 17:25 100 H 97 Laboratory Results Short CBC 06/07/20 Range/Units 17:50 WBC 10.38 (4.8-10.8) K/uL Hgb 14.3 (12.0-16.0) g/dL Hct 42.0 (37-47) % Plt Count 281 (130-400) K/uL BMP 06/07/20 17:50 Sodium 142 Potassium 4.1 Chloride 109 H Carbon Dioxide 30 BUN 19 H Creatinine 1.35 H Glucose 124 H Calcium 9.8 Cardiac Enzymes 06/07/20 Range/Units 17:50 Troponin I < 0.015 (0-0.045) ng/ml Liver Function 06/07/20 Range/Units 17:50 Total Bilirubin 0.6 (0.2-1) mg/dl AST 24 (15-37) U/L ALT 32 (12-78) U/L Alkaline Phosphatase 154 H (45-117) U/L Albumin 3.4 (3.4-5.0) gm/dl Urine 06/07/20 Range/Units 17:30 Urine Color Yellow Urine Appearance Clear (Clear) Urine pH 6.5 (4.5-7.5) Ur Specific Mullens 1.010 (1.000-1.030) Urine Protein Negative (Negative) Urine Glucose (UA) Negative (Negative) Diagnostic Findings HEAD CT IMPRESSION: 1. No acute intracranial findings 2. Old infarcts involving the left occipital lobe and left cerebellum HEAD CTA IMPRESSION: 1. Occlusion of the right middle cerebral artery at the level of sylvian fissure. NECK CTA IMPRESSION: 1. No evidence of hemodynamically significant carotid or vertebral artery stenosis. No evidence of dissection. 2. Enlarging 27 mm area of masslike consolidation within the right lung apex. Nonemergent pulmonary consultation is recommended in follow-up Code Status & VTE Plan Code Status Patient is a DNR as per my discussion with patient's daughter who is the bedside. VTE Prophylaxis Plan VTE Prophylaxis will be ordered: Yes Supervising Physician Co-Signing Physician Notes Care coordinated with JAYLENE Ascencio. Agree with above note. Patient seen and examined. Please refer to her notes for full details. Vital signs reviewed. Physical exam: General exam: Head leaning to right side gaze right preference CVS: S1 and S2 heard, regular rate and rhythm, no murmurs. RS: Clear to auscultation, no wheezing or crackles. ABD: Soft, bowel sounds present, nontender, no distention. TARIFF PUBLISHING AGENT: Oriented to name, Left side weakness, Moves right extremities on commands EXT: No edema, no erythema. Labs: Reviewed. Assessment and plan:89f presents with acute stroke. Lives with daughter. As per daughter patient woke up 3:30pm and walked to bathroom. But at 4:30pm daughter noticed stroke symptoms and brought to ER. Stroke alert was called. Imaging studies showing Right MCA lesion.Daughter was ok for tpa. patient is DNR/DNI.Currently patient can tell her name. Has slight movement of left extremities. Moves right extremities on command. Daughter in the room. Acute CVA Right MCA stroke s/p tpa monitor in icu Neiro consult follow repeat ct head permissive htn high dose statin MALT lymphoma on observation Other diagnosis and plan of care as per as per JAYLENE Ascencio. Aguila tiwari MD.
[2020-06-07] MEDS ORDERED: ICU PROTOCOL FOR HYPERGLYCEMIA PRN (21:30)
[2020-06-07] MEDS ORDERED: PHARMACIST DISCHARGE MED REC CONSULT PRN (21:30)
--- NOTE | 2020-06-07 22:01 | Critical Care Consultation ---
Date of Consultation June 07, 2020 Assessment & Plan (1) Admitted to intensive care unit: Reason Critically Ill: 89-year-old female with acute CVA status post TPA administration requiring close hemodynamic monitoring per unit protocol. NEURO - * CAM ICU: Positive * CVA: * Presents w/ LEFT sided facial droop, LEFT sided weakness, and RIGHT sided gaze. * CTA w/ RIGHT MCA stroke. * Patient not candidate for vascular intervention. * Received TPA. * BP, Neuro checks, etc per unit protocol. * f/u CT in 24 hrs for assessment of hemorrhagic conversion. * Per family, patient DNR/DNI in the event of any bleeding crisis s/p TPA administration. CARDIAC/VASCULAR - * Hypertension: * Permissive HTN post CVA w/ goal SBP <180. * Address BP issues as needed. * Monitor on telemetry. RESPIRATORY - * No h/o pulmonary disease. * Saturating well on room air. * Monitor for s/s respiratory distress/hemorrhage in the setting of known chest mass in the patient recently receiving TPA. GI/NUTRITION - * NPO pending swallow study. RENAL/LYTES - * No significant electrolyte derangements. * CKD III - * Question of UTI. * Urinalysis unimpressive. * Will await cultures. * Wiley in place - Strict I&Os. ENDO - * No h/o DM or Thyoid Dz * BSGs per unit protocol. ISS --> gtt per unit policy. HEME - * Stable H&H * Monitor for s/s bleeding s/p TPA administration. ID - * ??UTI * Cultures pending. LINES/IV ACCESS - * PIVs x2 DVT PROPHYLAXIS - * Hold s/p TPA administration. * SCDs I have personally spent 35 minutes of critical care time in the direct management of this patient. This is a life/limb threatening event. This includes time spent evaluating patient, direct bedside care, chart review, placing orders, interpretation of diagnostic studies, discussion with consultants, patient, and family members, as well as other required patient management activities. This time is exclusive of all separately billable procedures, and teaching time and separate from and in addition to any other critical care service time. Thank you for allowing us to participate in the care of this patient. Please refer to my attending physician's documentation for any further recommendations. (2) Acute ischemic right MCA stroke: (3) Hypertension: (4) Acute UTI: (5) CKD (chronic kidney disease), stage III: (6) Diet-controlled type 2 diabetes mellitus: (7) MALT lymphoma: History of Present Illness Attending Physician: Aguila Guerra MD History of Present Illness Patient is an 89-year-old female with a significant past medical history of hypertension, CKD 3, diabetes, and MALT Lymphoma. She apparently awoke from nap and was noted to be experiencing strokelike symptoms with LEFT-sided facial droop and LEFT-sided weakness with RIGHT-sided gaze preference. She was hypertensive upon arrival. CTA of the head and neck demonstrated RIGHT MCA occlusion. Family consents to TPA administration. Patient was also noted to have a UTI versus contamination. She received Rocephin. Upon arrival in the ICU, the patient is awake, but not oriented. She does not answer questions. She is unable to participate in history of present illness. Allergies Allergy/AdvReac Type Severity Reaction Status Date / Time aspirin AdvReac Severe bleeding Unverified 06/07/20 18:43 ulcer fish oil AdvReac Severe bleeding Unverified 06/07/20 18:43 ulcer Ibandronic Acid AdvReac Severe bleeding Uncoded 06/07/20 18:43 ulcer Home Medications Medication Instructions Recorded Confirmed Type atorvastatin 40 mg PO DAILY 06/07/20 06/07/20 History cholecalciferol (vitamin D3) 25 mcg PO QAM 06/07/20 06/07/20 History [Vitamin D3] ferrous sulfate 325 mg PO QAM 06/07/20 06/07/20 History hydroxyzine HCl 25 mg PO TID PRN 06/07/20 06/07/20 History memantine 10 mg PO BID 06/07/20 06/07/20 History pantoprazole 40 mg PO QAM 06/07/20 06/07/20 History sennosides [senna] 4.3 mg PO 3XWK 06/07/20 06/07/20 History Patient History Medical History CKD (chronic kidney disease), stage III Dementia Diet-controlled type 2 diabetes mellitus HLD (hyperlipidemia) HTN (hypertension) MALT lymphoma (06/26/10) "DIAGNOSIS: Gastric MALT Lymphoma, 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 Status post completion of radiation therapy 09/10/2015 received 3000 cGy" On 09/22/15 14:15 Mallory Mujica wrote "DIAGNOSIS: Gastric MALT Lymphoma, 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 Status post completion of radiation therapy 09/10/2015 received 3000 cGy" On 07/24/15 11:44 Rose Vega wrote "DIAGNOSIS: Gastric MALT Lymphoma, 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" Family History Brother Stroke Social History Smoking Status: Never smoker Hx Alcohol Use: No Hx Substance Use: No Preferred Language: French Communication Ability: Effective Recreational Director Required: No Beliefs That Will Affect Care: None Current Living Situation: Family Current Living Situation Comment: lives with daughter Other Information That Helps Us Care for You: No Feels Safe at Home: Yes Safety Concerns: Feels Safe At This Time Review of Systems Review of Systems: Unobtainable due to cognitive status Physical Exam Physical Exam: VITAL SIGNS - Vital signs and nursing notes were reviewed. GENERAL - 89-year-old female appearing her stated age who is in no acute distress. RIGHT sided gaze. Unable to answer questions appropriately. HEAD - Normocephalic, Atraumatic. EYES - RIGHT sided fixed gaze. Sclera anicteric. Palpebral conjunctiva pink and moist with no injection noted. EARS - No deformities of external structures noted on gross examination bilaterally. NOSE - Midline and without cyanosis. MOUTH/OROPHARYNX - Without perioral cyanosis. NECK - Neck with FROM. LUNGS - Chest wall symmetric without accessory muscle use, intercostals retractions, or central cyanosis. Normal vesicular breath sounds CTA B/L. No wheezes, rales, or rhonchi appreciated. CARDIAC - RRR with S1/S2. No murmur, rubs, or gallops appreciated. ABDOMEN - Abdominal contour flat without pulsations or visible masses. BS normoactive all four quadrants. No tenderness, palpable masses, hepatosplenomegaly, or ascites noted. EXTREMITIES - No pretibial edema present. +3/5 radial and dorsalis pedis pulses palpated throughout. Left sided weakness. Unable to participate in exam. NEUROLOGIC - LEFT sided weakness. RIGHT sided gaze. Unable to answer questions appropriately. Results & Data Results & Data ([facility]) Vital Signs (Past 12 Hours) Vital Signs Temp Pulse Pulse Resp BP BP Pulse Ox 06/07/20 21:30 36.8 C 75 75 14 175/99 H 175/99 H 97 06/07/20 20:55 76 19 176/85 H 93 06/07/20 20:51 76 20 96 06/07/20 20:46 77 13 96 06/07/20 20:45 79 14 175/83 H 94 06/07/20 20:40 70 14 171/70 H 96 06/07/20 20:35 75 22 165/70 H 95 06/07/20 20:30 71 21 167/80 H 95 06/07/20 20:25 73 17 163/78 H 95 06/07/20 20:16 70 16 95 06/07/20 20:15 75 18 172/77 H 94 06/07/20 20:10 75 12 166/83 H 95 06/07/20 20:06 75 14 96 06/07/20 20:05 76 16 174/90 H 93 06/07/20 20:00 78 16 162/80 H 95 06/07/20 19:55 71 14 172/72 H 95 06/07/20 19:51 77 15 95 06/07/20 19:50 75 19 148/74 H 94 06/07/20 19:46 76 16 95 06/07/20 19:45 77 13 128/73 93 06/07/20 19:42 73 14 145/78 H 94 06/07/20 19:40 76 15 94 06/07/20 19:35 75 16 148/78 H 94 06/07/20 19:31 75 16 95 06/07/20 19:30 80 16 180/79 H 96 06/07/20 19:29 76 16 170/68 H 95 06/07/20 19:25 77 16 95 06/07/20 19:21 79 14 174/86 H 96 06/07/20 19:20 78 18 96 06/07/20 19:18 74 21 96 06/07/20 19:17 80 14 171/64 H 96 06/07/20 19:15 76 17 96 06/07/20 19:11 81 17 168/97 H 96 06/07/20 19:10 79 15 97 06/07/20 19:06 76 15 148/76 H 97 06/07/20 19:05 75 17 97 06/07/20 19:00 75 18 169/92 H 97 06/07/20 18:56 72 17 163/82 H 97 06/07/20 18:55 76 17 96 06/07/20 18:52 77 19 96 06/07/20 18:51 76 18 158/79 H 95 06/07/20 18:46 75 20 167/83 H 95 06/07/20 18:45 73 15 93 06/07/20 18:41 75 17 154/72 H 95 06/07/20 18:33 80 19 172/117 H 92 06/07/20 18:30 85 14 92 06/07/20 18:15 84 16 96 06/07/20 18:11 90 17 173/75 H 98 06/07/20 18:02 168/98 H 06/07/20 18:01 88 18 167/98 H 97 06/07/20 18:00 89 15 98 06/07/20 17:40 87 19 97 06/07/20 17:30 95 H 17 99 06/07/20 17:27 36.5 C 96 H 18 209/104 H 97 06/07/20 17:25 100 H 97 Coding Level of Care Code Critical Care 1st 30-74 mins Diagnoses Admitted to intensive care unit Z78.9 Acute ischemic right MCA stroke I63.511 Hypertension I10 Hypertension type: unspecified Acute UTI N39.0 CKD (chronic kidney disease), stage III N18.3 Diet-controlled type 2 diabetes mellitus E11.9 MALT lymphoma C88.4 Time Spent (min) 35 (1) Hypertension Hypertension type: unspecified Qualified Code(s): I10 - Essential (primary) hypertension
[2020-06-08 05:13] LABS: Basophils # (auto) 0.02 K/uL (0-0.2); Basophils % (auto) 0.2 %; Hematocrit (blood only) 38.7 % (37-47); Hemoglobin 13.2 g/dL (12.0-16.0); Immature Granulocytes # (auto) 0.04 K/uL (0.00-0.02); Immature Granulocytes % (auto) 0.3 %; Lymphocytes # (auto) 1.11 K/uL (1.2-3.4); Lymphocytes % (auto) 8.3 %; Mean Corpuscular Hgb Conc 34.1 g/dL (32-36); Mean Corpuscular Volume 93.9 fL (80-100); Mean Platelet Volume 12.4 fL (7.4-10.4); Monocytes # (auto) 0.64 K/uL (0.11-0.59); Monocytes % (auto) 4.8 %; Neutrophils # (auto) 11.52 K/uL (1.4-6.5); Neutrophils % (auto) 86.4 %; Platelet Count 294 K/uL (130-400); RDW Coefficient of Variation 13.6 % (11.5-14.5); RDW Standard Deviation 46.7 fL (36.4-46.3); Red Blood Count 4.12 M/uL (4.2-5.4); White Blood Count 13.33 K/uL (4.8-10.8)
[2020-06-08 05:42] LABS: BUN Creatinine Ratio 16.1 (10-20); Calcium 8.9 mg/dl (8.5-10.1); Est GFR (African American) 39.5; Est GFR (Non-African American) 34.1; Phosphorus 4.3 mg/dl (2.5-4.9)
[2020-06-08] MEDS ORDERED: PERFLUTREN LIPID MICROSPHERE (DEFINITY) IV ONE (07:44)
--- NOTE | 2020-06-08 10:25 | Critical Care Progress Note ---
Date of Service June 08, 2020 Assessment & Plan (1) Admitted to intensive care unit: Reason Critically Ill: 89-year-old female with acute CVA status post TPA administration requiring close hemodynamic monitoring per unit protocol. NEURO - * CAM ICU: Positive * CVA: * Presents w/ LEFT sided facial droop, LEFT sided weakness, and RIGHT sided gaze. * CTA w/ RIGHT MCA stroke. * Patient not candidate for vascular intervention. * Received TPA. * BP, Neuro checks, etc per unit protocol. * f/u CT in 24 hrs for assessment of hemorrhagic conversion. * Per family, patient DNR/DNI in the event of any bleeding crisis s/p TPA administration. * MRI ordered of the brain. CARDIAC/VASCULAR - * Hypertension: * Permissive HTN post CVA w/ goal SBP <180. * Address BP issues as needed. * Monitor on telemetry. RESPIRATORY - * No h/o pulmonary disease. * Saturating well on room air. * Monitor for s/s respiratory distress/hemorrhage in the setting of known chest mass in the patient recently receiving TPA. GI/NUTRITION - * NPO pending swallow study. RENAL/LYTES - * No significant electrolyte derangements. * CKD III ENDO - * No h/o DM or Thyoid Dz * BSGs per unit protocol. ISS --> gtt per unit policy. HEME/ONC - * Stable H&H * Monitor for s/s bleeding s/p TPA administration. * Right upper lobe lesion is very concerning for malignancy. ID - * ??UTI * Cultures pending. * Continue rocephin LINES/IV ACCESS - * PIVs x2 DVT PROPHYLAXIS - * Hold s/p TPA administration. * SCDs (2) Acute ischemic right MCA stroke: (3) Hypertension: (4) Acute UTI: (5) CKD (chronic kidney disease), stage III: (6) Diet-controlled type 2 diabetes mellitus: (7) MALT lymphoma: (8) Lung mass: Admission and Anticipated Discharge Date Admission Date: June 07, 2020 Subjective Patient seen and examined this morning. Continues to have severe left-sided upper extremity and lower extremity flaccid paralysis. Right gaze preference. [place] is unintelligible. She does follow some commands with her right upper ex tremity. Review of Systems Review of Systems: Unobtainable due to cognitive status Physical Exam Physical Exam: VITAL SIGNS - Vital signs and nursing notes were reviewed. GENERAL - 89-year-old female appearing her stated age who is in no acute distr ess. RIGHT sided gaze. Unable to answer questions appropriately. HEAD - Normocephalic, Atraumatic. EYES - RIGHT sided fixed gaze. Sclera anicteric. Palpebral conjunctiva pink and moist with no injection noted. EARS - No deformities of external structures noted on gross examination bilaterally. NOSE - Midline and without cyanosis. MOUTH/OROPHARYNX - Without perioral cyanosis. NECK - Neck with FROM. LUNGS - Chest wall symmetric without accessory muscle use, intercostals retractions, or central cyanosis. Normal vesicular breath sounds CTA B/L. No wheezes, rales, or rhonchi appreciated. CARDIAC - RRR with S1/S2. No murmur, rubs, or gallops appreciated. ABDOMEN - Abdominal contour flat without pulsations or visible masses. BS normoactive all four quadrants. No tenderness, palpable masses, he patosplenomegaly, or ascites noted. EXTREMITIES - No pretibial edema present. +3/5 radial and dorsalis pedis pulses palpated throughout. Left sided weakness. Unable to participate in exam. NEUROLOGIC - LEFT sided weakness. RIGHT sided gaze. Unable to answer questions appropriately. Results & Data Results & Data ([facility]) Vital Signs (Past 12 Hours) Vital Signs Temp Pulse Resp BP Pulse Ox 06/08/20 08:45 97.7 F 81 17 167/77 H 97 06/08/20 07:45 97.7 F 82 19 167/79 H 95 06/08/20 06:44 98.4 F 85 20 181/77 H 96 06/08/20 05:44 98.2 F 77 22 147/91 H 94 06/08/20 04:44 98.6 F 80 16 152/76 H 96 06/08/20 03:44 98.6 F 85 20 150/77 H 95 06/08/20 02:44 98.4 F 81 20 158/70 H 95 06/08/20 02:14 98.6 F 74 18 153/63 H 96 06/08/20 01:44 98.2 F 76 16 173/53 H 96 06/08/20 01:14 98.4 F 72 14 153/69 H 96 06/08/20 00:44 98.2 F 72 18 168/71 H 94 06/08/20 00:14 98.2 F 85 18 165/71 H 94 06/07/20 23:44 98.2 F 74 16 163/65 H 94 06/07/20 23:14 98.2 F 78 16 179/77 H 97 06/07/20 22:44 98.2 F 69 16 145/115 H 94 reviewed the vital signs, labs and imaging Coding Level of Care Code 35491 Subseq Hosp Care Lvl 3 Diagnoses Admitted to intensive care unit Z78.9 Acute ischemic right MCA stroke I63.511 Hypertension I10 Hypertension type: unspecified Acute UTI N39.0 CKD (chronic kidney disease), stage III N18.3 Diet-controlled type 2 diabetes mellitus E11.9 MALT lymphoma C88.4 Lung mass R91.8 (1) Hypertension Hypertension type: unspecified Qualified Code(s): I10 - Essential (primary) hypertension
--- NOTE | 2020-06-08 10:56 | Communication Note ---
Date of Service: June 08, 2020 Siri is 89 years old is a patient of Dr. Garcia of [facility] and was admitted yesterday for the acute onset of left hemiparesis with neglect and head and eye deviation to the right consistent with a right hemispheric CVA and on CT scan no clear evidence for same was seen but there was on CT angiography evidence for an occlusion of the right middle cerebral artery at its origin and imaging studies are pending including an MRI and a repeat CT today This occurs in the setting of longstanding hypertension, a lymphoma with a known mass in the lung undergoing no active treatment at the present time according to radiographic studies the size of the mass appears to be somewhat less than on prior studies, type 2 diabetes, chronic stage III renal disease, dyslipidemia, osteoarthritis, and a possible urinary tract infection acute type based on laboratory studies She was seen in the emergency room stroke neurology from [place] was consulted and she received TPA but it does not appear that there was a great degree of change following administration but it also appears that she has not clinically deteriorated please from the information I can glean from the nursing staff today Home medications include atorvastatin vitamin D ferrous sulfate hydroxyzine Namenda, pantoprazole senna It is stated that she has cognitive impairment at baseline but I am not sure how significant this is other than the fact that she is currently taking Namenda Her medication list does not include aspirin or Plavix System review cannot be obtained from the patient but review of the chart suggests that there has been no recent systemic illnesses of significance no hospitalizations and no new issues referable to head eyes ears nose and throat, cardiovascular pulmonary gastrointestinal genitourinary musculoskeletal dermatologic or hematologic systems other than the known underlying lymphoma and her other medical problems including some level of cognitive impairment at baseline On exam today blood pressure is 167/77 pulse 81 respirations are 17 she is awake will follow commands has a flat affect but no language disturbance on limited conversation. There is clear head and eye deviation to the right and I think there is a left visual field cut although this is very difficult to demonstrate. She has a left upper motor neuron facial paresis of mild degree and a fairly dense left hemiparesis involving the leg more than the arm though she has minimal movements in the latter. She will withdraw all the leg and arm to noxious stimuli. She neglects sensory stimuli presented simultaneously on the left but can feel them primarily to some degree. 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 Reflexes remain little hypoactive but tone appears to be increasing on the left and the toe sign on the left is positive Jen sign is positive and she has a significant degree of upper motor neuron weakness without atrophy or fasciculations and a sensory examination at includes the neglect and probably some degree of primary sensory loss on the left it is very difficult to quantify and document Ending studies include an echocardiogram, an MRI, and the CAT scan that is traditionally done after TPA and will be performed at 4:00 this afternoon I suspect this was an embolic event involving the proximal portions of the right middle cerebral artery possibly related to some cardiac valvular disease possibly related to the lymphoma with a nonbacterial thrombotic endocarditis picture, possibly due to paroxysmal atrial fibrillation or possibly even due to atheromatous plaque in the aorta but to some degree the issue is academic Treatment at this point as long as there is no hemorrhage will include aspirin and Plavix for 21 days and then probably aspirin alone as she appears to be colby in terms of antiplatelet agents according to what I can determine from review of the chart. If this is not the case and she was on baby aspirin then after 21 days she should be switched over to Plavix alone All of this is contingent of course upon the results of the echocardiogram and cardiac monitoring as she might be a candidate for a novel anticoagulant or even warfarin if a source of cardiogenic or aortic arch plaque embolization is found. More risky anticoagulation protocols would of course has to be balanced against her other medical illnesses, her fall risk etc. She is going to need rehabilitation medicine speech therapy swallowing evaluation etc. and if swallowing becomes an issue the potential of a PEG tube may have to be raised with the family in light of the patient's advanced directives Neurology will follow up tomorrow Sign of Jacky Stearns MD
--- NOTE | 2020-06-08 11:04 | Hospitalist Progress Note ---
Date of Service June 08, 2020 Assessment & Plan (1) Acute ischemic right MCA stroke: -Patient presenting from home for evaluation of left-sided weakness and garbled speech. Daughter reports patient has advanced dementia at baseline. -In the ED, head CTA shows right MCA occlusion. Stroke alert was called and patient received TPA. -Daughter reports the patient is a DNR/DNI, no aggressive measures are to be performed including central line placement, pressors, invasive procedures. -Symptoms seem to be improving after TPA -Maintain systolic blood pressure < 180 -Repeat head CT in 24 hours -MRI has been ordered -Awaiting neurology input and recommendation -Remains hemodynamically stable -Has not been moving left-sided extremities, no facial asymmetry, eyes deviated to the right (2) Abnormal urinalysis: -UA suggest possible UTI -S/p IV ceftriaxone in the ED, continue with -Urine culture is growing gram-negative bacilli further sensitivities and identification are pending -We will continue (3) Diet-controlled type 2 diabetes mellitus: -Hgb A1c 7.1 02/2020 -Hyperglycemic protocol per ICU (4) MALT lymphoma: -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 -S/p Rituxan therapy 2010, radiation therapy to the stomach 2015 -PET scan 2013 showed right upper lobe lung mass 3.4 cm x 2.4 cm -Right upper lobe mass noted on neck CT today measured 27 mm -Under observation, no active treatment (5) CKD (chronic kidney disease), stage III: -Baseline creatinine runs in the mid 1's -Noted to be 1.3 today -Avoid nephrotoxic agents when able, follow renal functions -Creatinine is stable at 1.37 (6) DVT prophylaxis: -SCDs due to receiving TPA CODE STATUS DNR/DNI Prognosis remains very poor Admission and Anticipated Discharge Date Admission Date: June 07, 2020 Subjective 06/08/2020 The patient was seen and examined in the ICU She is status post TPA for acute stroke Answering only to simple questions Not been moving her left-sided extremities at all Review of Systems Review of Systems: Unobtainable due to cognitive status Physical Exam Physical Exam: Lying in bed comfortably Constitutional: + ill appearing and average body habitus Eyes: Deviated to the right ENMT: external ear and nose normal, oropharynx normal Neck: trachea midline, no thyromegaly Respiratory: no respiratory distress Auscultation: lungs clear to auscultation bilaterally and + diminished lung sounds Cardiovascular: Rate/Rhythm: regular rate and regular rhythm Heart Sounds: + murmur (2/6 ESM) Extremities: no edema Gastrointestinal (Abdomen): Inspection/Auscultation: normal bowel sounds; abdomen not distended Percussion/Palpation: abdomen soft Musculoskeletal: No acute arthritis in any joint Neurologic: Alert and awake. Answering is only one or two works. Moving right side extremities only. No facial asymmetry. The eyes are deviated to the right Results & Data Results & Data ([facility]) Vital Signs (Past 12 Hours) Vital Signs Temp Pulse Pulse Resp BP Pulse Ox 06/08/20 10:45 36.5 C 91 H 17 162/74 H 95 06/08/20 09:45 36.5 C 88 23 154/72 H 96 06/08/20 08:45 36.5 C 81 17 167/77 H 97 06/08/20 08:00 83 06/08/20 07:45 36.5 C 82 19 167/79 H 95 06/08/20 06:44 36.9 C 85 20 181/77 H 96 06/08/20 05:44 36.8 C 77 22 147/91 H 94 06/08/20 04:44 37 C 80 16 152/76 H 96 06/08/20 03:44 37 C 85 20 150/77 H 95 06/08/20 02:44 36.9 C 81 20 158/70 H 95 06/08/20 02:14 37 C 74 18 153/63 H 96 06/08/20 01:44 36.8 C 76 16 173/53 H 96 06/08/20 01:14 36.9 C 72 14 153/69 H 96 06/08/20 00:44 36.8 C 72 18 168/71 H 94 06/08/20 00:14 36.8 C 85 18 165/71 H 94 06/07/20 23:44 36.8 C 74 16 163/65 H 94 06/07/20 23:14 36.8 C 78 16 179/77 H 97 Laboratory Results Short CBC 06/07/20 06/08/20 Range/Units 17:50 04:46 WBC 10.38 13.33 H (4.8-10.8) K/uL Hgb 14.3 13.2 (12.0-16.0) g/dL Hct 42.0 38.7 (37-47) % Plt Count 281 294 (130-400) K/uL BMP 06/07/20 06/08/20 17:50 04:46 Sodium 142 138 Potassium 4.1 Chloride 109 H 107 Carbon Dioxide 30 25 BUN 19 H 22 H Creatinine 1.35 H 1.37 H Glucose 124 H 192 H Calcium 9.8 8.9 Cardiac Enzymes 06/07/20 Range/Units 17:50 Troponin I < 0.015 (0-0.045) ng/ml Liver Function 06/07/20 Range/Units 17:50 Total Bilirubin 0.6 (0.2-1) mg/dl AST 24 (15-37) U/L ALT 32 (12-78) U/L Alkaline Phosphatase 154 H (45-117) U/L Albumin 3.4 (3.4-5.0) gm/dl Urine 06/07/20 Range/Units 17:30 Urine Color Yellow Urine Appearance Clear (Clear) Urine pH 6.5 (4.5-7.5) Ur Specific [place] 1.010 (1.000-1.030) Urine Protein Negative (Negative) Urine Glucose (UA) Negative (Negative) Medications Administered Current Inpatient Medications Aspirin (No Aspirin Within 24 Hrs Of Tpa For Stroke) 1 ea PO UD [place] Stop: 06/08/20 18:29 Atorvastatin Calcium (Atorvastatin 40 Mg Tab) 40 mg PO QAM [place] Stop: 07/09/20 08:59 Ceftriaxone Sodium 2,000 mg/ (Dextrose) 70 mls @ 100 mls/hr IV Q24H [place]; Protocol Stop: 06/11/20 18:41 Miscellaneous (Icu Protocol For Hyperglycemia) 1 ea N/A PRN PRN; Protocol PRN Reason: Hyperglycemia Protocol Stop: 06/09/20 21:29 Miscellaneous Information (Pharmacist Discharge Med Rec Consult) 1 ea N/A UD PRN PRN Reason: Consult Stop: 07/07/20 21:29
--- NOTE | 2020-06-08 13:25 | Electrocardiogram Report ---
Test Reason : Blood Pressure : / mmHG Vent. Rate : 095 BPM Atrial Rate : 095 BPM P-R Int : 144 ms QRS Dur : 064 ms QT Int : 362 ms P-R-T Axes : 052 028 028 degrees QTc Int : 454 ms Poor data quality, interpretation may be adversely affected Normal sinus rhythm Normal ECG When compared with ECG of 20-MAR-2015 07:18, No significant change Confirmed by Honorio Dill ([id number]) on 06/08/2020 1:25:31 PM Referred By: REFERRED SELF Confirmed By:Honorio Dill
--- NOTE | 2020-06-08 17:12 | CT Scan Report ---
CT SCAN OF THE BRAIN WITHOUT IV CONTRAST CLINICAL HISTORY: Stroke like symptoms status post TPA. COMPARISON STUDY: CT of the brain dated 06/07/2020. TECHNIQUE: Unenhanced axial CT scan of the brain is performed from the vertex to the skull base. A do se lowering technique was utilized adhering to the principles of ALARA. CT DOSE: 614.27 mGy.cm FINDINGS: Brain parenchyma: Left occipital encephalomalacia is consistent with a remote infarct. There is a lef t occipital hemorrhage, which is new from yesterday. This measures 2.6 x 1.8 cm as seen on image #17. There is mild surrounding edema. No additional foci of hemorrhage are identified. There is diffuse l oss of doyle-white matter differentiation in the right temporoparietal lobes consistent with a subacut e/evolving infarct. There is effacement of overlying cortical sulci. No midline shift is identified. There are age-related involutional changes noting moderate subcortical and periventricular microangi opathic change. No extra-axial fluid collection is seen. Ventricles, sulci, cisterns: Prominent secondary to involutional change. No intraventricular hemorrha ge is identified. Intracranial vasculature: There is atherosclerotic calcification of the cavernous carotid and vertebr al arteries. Calvarium: Unremarkable. Sinuses and mastoids: There is a 1.4 cm retention cyst in the left maxillary antrum. Trace mucosal th ickening is present in both maxillary sinuses. The remaining visualized paranasal sinuses are clear. The mastoid air cells are well pneumatized. Orbits: The bony orbits are grossly intact. There are bilateral ocular lens implants. IMPRESSION: 1. There is a 2.6 x 1.8 cm hemorrhage identified in the left occipital lobe. This is new from yesterd ay. 2. There is a large evolving right temporoparietal infarct. ACT 112: Negative or not required by law. Electronically signed by: Delgado Canseco M.D. 06/08/2020 5:11 PM
[2020-06-08] MEDS ORDERED: cefTRIAXone SODIUM 2,000 MG in DEXTROSE 5% 50 ML IV SCH (18:00)
[2020-06-08 20:09] LABS: Magnesium 2.4 mg/dl (1.8-2.4); Potassium 3.8 mmol/L (3.5-5.1)
--- NOTE | 2020-06-08 20:51 | Communication Note ---
Date of Service: June 08, 2020 2030: I was successfully able to reach the patient's daughter/POA, Siri De Santiago ([phone]). Provided update regarding hemorrhagic conversion found on evening CT. Discussed patient decline including less interactive than last evening as well as change in breathing pattern (more labored). We discussed ongoing management as well as further imaging modalities, specifically MRI. Siri is comfortable with performing MRI this evening as it may provide more information as to the extent of the ischemic insult that her mother sustained. We did discuss ongoing care and to this point, we will continue with current medical course with the caveat that the patient remains DNR/DNI and we would avoid any significantly invasive interventions/procedures that would prolong patient's life. We did come to the decision that if the patient were to decline further this evening, we would certainly reach out to her and ongoing care could be reassessed at that time up to and including transition to Comfort Measures. All questions were answered and the patient's daughter was comfortable with current treatment course. We will contact her with any changes overnight. 2330: Received a call from nursing staff that the patient was vomiting when they attempted to perform MRI. She was vigorously suctioned and staff was requesting antiemetic. I did instruct RN to abort attempt at MRI and return the paient to the ICU where she can be better monitored. We will forgo MRI at this time as I feel that the cost of obtaining MRI results outweigh the benefits in the unfortunate situation. My concern is that the patient will continue to aspirate (possibly/likely) into her airway resulting in respiratory failure and ultimately . Upon assessment at bedside upon return to ICU, patient is 93% on room air which is consistent with readings prior to episode of emesis. As the patient is a DNI, with significant ischemic insult s/p TPA followed by subsequent hemorrhagic conversion, I do not feel that the MRI will provide us with a significant amount of information at this point that would be worth risking further aspiration event this evening. Nursing staff and ultrasound tech updated on new plan to hold off MRI. As patient has not clinically deteriorated from earlier bedside evaluation, I will refrain from updating family at this time as per my earlier discussion with the patient's POA, Siri De Santiago. I have personally spent 45 minutes of critical care time in the direct management of this patient. This is a life/limb threatening event. This includes time spent evaluating patient, direct bedside care, chart review, placing orders, interpretation of diagnostic studies, discussion with consultants, patient, and family members, as well as other required patient management activities. This time is exclusive of all separately billable procedures, and teaching time and separate from and in addition to any other critical care service time. Coding Level of Care Code Critical Care ea addt'l 30 min Time Spent (min) 45
[2020-06-08] MEDS ORDERED: ONDANSETRON INJ 2 MG/ML 2 ML VIAL IV PRN (23:31)
[2020-06-09 05:15] LABS: Basophils # (auto) 0.01 K/uL (0-0.2); Hematocrit (blood only) 41.9 % (37-47); Hemoglobin 13.6 g/dL (12.0-16.0); Immature Granulocytes # (auto) 0.08 K/uL (0.00-0.02); Immature Granulocytes % (auto) 0.3 %; Lymphocytes # (auto) 1.18 K/uL (1.2-3.4); Lymphocytes % (auto) 5.1 %; Mean Corpuscular Hemoglobin 31.6 pg (25-34); Mean Corpuscular Hgb Conc 32.5 g/dL (32-36); Mean Corpuscular Volume 97.2 fL (80-100); Monocytes # (auto) 1.77 K/uL (0.11-0.59); Monocytes % (auto) 7.7 %; Neutrophils # (auto) 19.95 K/uL (1.4-6.5); Neutrophils % (auto) 86.9 %; Platelet Count 275 K/uL (130-400); RDW Coefficient of Variation 13.6 % (11.5-14.5); RDW Standard Deviation 48.7 fL (36.4-46.3); Red Blood Count 4.31 M/uL (4.2-5.4); White Blood Count 22.99 K/uL (4.8-10.8)
[2020-06-09 05:29] LABS: BUN Creatinine Ratio 18.5 (10-20); Calcium 8.9 mg/dl (8.5-10.1); Creatinine Clr Calc Pharmacy 23.2 ml/min; Est GFR (African American) 37.9; Est GFR (Non-African American) 32.7; Magnesium 2.5 mg/dl (1.8-2.4); Potassium 3.9 mmol/L (3.5-5.1)
[2020-06-09 05:41] LABS: Phosphorus 3.3 mg/dl (2.5-4.9)
[2020-06-09 06:29] LABS: Estimated Average Glucose 154 mg/dl
--- NOTE | 2020-06-09 07:39 | XRay Report ---
XR chest 1V portable CLINICAL HISTORY: Strokelike symptoms COMPARISON STUDY: March 20, 2015 FINDINGS: The cardiac and mediastinal contours are normal. There is no evidence of focal pulmonary co nsolidation. There is no evidence of failure. No pleural effusions are visualized.[There are old righ t-sided rib fractures. There are minimal basilar atelectatic changes. IMPRESSION: No active disease in the chest. ACT 112: Negative or not required by law. Electronically signed by: Dany Lutz M.D. 06/09/2020 7:38 AM
--- NOTE | 2020-06-09 08:22 | Critical Care Progress Note ---
Date of Service June 09, 2020 Assessment & Plan (1) Admitted to intensive care unit: Reason Critically Ill: 89-year-old female with acute CVA status post TPA administration requiring close hemodynamic monitoring per unit protocol. NEURO - CAM ICU: Positive CVA: - Presents w/ LEFT sided facial droop, LEFT sided weakness, and RIGHT sided gaze. - CTA w/ RIGHT MCA stroke. - Patient not candidate for vascular intervention. - Received TPA - BP, Neuro checks, etc per unit protocol. - F/U CT showing hemorrhagic conversion but unable to obtain MRI as patient had emesis while there and was high-risk for aspiration. - Per family, patient DNR/DNI in the event of bleeding crisis s/p TPA administration - Per daughter's discussion with palliative, they will move to a more comfort oriented approach CARDIAC/VASCULAR - Hypertension: - Permissive HTN post CVA w/ goal SBP <180. - Address BP issues as needed. - Monitor on telemetry. RESPIRATORY - - No h/o pulmonary disease. - Saturating well on room air. - Monitor for s/s respiratory distress/hemorrhage in the setting of known chest mass in the patient recently receiving TPA. GI/NUTRITION - - NPO pending swallow study. RENAL/LYTES - - CKD III - No significant electrolyte derangements. ENDO - - No h/o DM or Thyoid Dz - BSGs per unit protocol. ISS --> gtt per unit policy. HEME/ONC - - Stable H&H - Monitor for s/s bleeding s/p TPA administration - Right upper lobe lesion is concerning for malignancy ID - - Urine culture growing E-coli--sensitivities pending - CTX discontinued per patient's POA who prefers to transition to comfort measures LINES/IV ACCESS - - PIVs x2 DVT PROPHYLAXIS - - Hold s/p TPA administration. - SCDs Dispo: Downgrade out of ICU (2) Acute ischemic right MCA stroke: (3) Acute UTI: (4) CKD (chronic kidney disease), stage III: (5) Diet-controlled type 2 diabetes mellitus: (6) Lung mass: Admission and Anticipated Discharge Date Admission Date: June 07, 2020 Supervising Physician Co-Signing Physician Notes Dr. Lau was resident physician during care of patient. I separately evaluated patient for cameron portions of the history and the exam. I was present during the critical portion of medical decision making, and I discussed the case with the resident. I generally agree with the findings and plan. After discussion with family patient would opt for comfort measures. Stable for downgrade out of ICU. Subjective Patient unresponsive to verbal stimuli this morning. Does react to sternal rub but is not alert. She moves her right arm and leg. Review of Systems Review of Systems: Unobtainable due to cognitive status Physical Exam Constitutional: + ill appearing and + altered mental status ENMT: external ear and nose normal, oropharynx normal Neck: normal visual inspection Respiratory: normal respiratory effort, lungs clear to auscultation Auscultation: no crackles, no rales, no rhonchi and no wheezes Cardiovascular: Rate/Rhythm: regular rhythm and + tachycardic Heart Sounds: normal S1 and normal S2; no gallop, no murmur and no cardiac rub Gastrointestinal (Abdomen): normal bowel sounds, soft, nontender, no hepatosplenomegaly Musculoskeletal: Extremities: no cyanosis and no clubbing Skin: no rashes, warm and dry Neurologic: Moves right-sided extremities, does not move left sided extremitie s. Not able to answer questions. Results & Data Results & Data ([facility]) Vital Signs (Past 12 Hours) Vital Signs Pulse Resp BP Pulse Ox 06/09/20 05:00 95 H 17 94 06/09/20 04:01 103 H 18 93 06/09/20 04:00 93 H 16 167/77 H 97 06/09/20 03:00 87 17 94 06/09/20 02:47 100 H 17 175/82 H 73 L 06/09/20 02:00 97 H 91 06/09/20 01:00 94 H 94 06/09/20 00:00 97 H 92 06/08/20 23:00 112 H 19 93 06/08/20 22:00 107 H 24 92 06/08/20 21:00 108 H 36 H 93 Resident Activity Tracking Resident Involvement: Resident Care Provided Care Provided: Adult Hospital Medicine
[2020-06-09] MEDS ORDERED: ATORVASTATIN 40 MG TAB PO SCH (09:00)
--- NOTE | 2020-06-09 11:35 | Palliative Care Consultation ---
Date of Consultation June 09, 2020 Assessment & Plan (1) Palliative care encounter: This is an 89 year old female who presented to the [facility] for evaluation of left-sided weakness and garbled speech. Her daughter Siri accompanied her to the ED and she does reside with her. 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 She was admitted on June 07 and received tPA. On June 08 at 1700 a repeat scan was obtained and results indicated a left occipital hemorrhagic CVA. Palliative Care was consulted to discuss goals of care. I met with patient Siri in room 102. She had furrowed brow and was able to open her eyes on command. She did, while I was in the room, non purposely move her right leg, bending her knee. I did reach out to her daughter, Siri, who has been processing her overall decline over the past year. She has just recently lost her own and was caring for her mother at home also. While she has been declining, she was able to eat and ambulate independently prior to the even on 06/07. She does understand the grave prognosis of her mother and would like to transition her care to a more comfort focused approach. She would like to stop IV abx, and all other non comfort focused medications. She would like to discontinue blood work and vitals, but is comfortable with blood pressure/SpO2 spot checks. We discussed life expectancy is likely days to a week or so. Reiterated that mental status can fluctuate with CVA presentation. PRN Roxanol, Atropine gtts and Ativan ordered. Set expectation regarding placement options should she not decline and pass over the next few days. The family has decided they would like her to be placed at a nursing facility, preferably [facility] due to the proximity of their home. All of the above discussed with Applicator Sprayer and nursing. Palliative will follow along. (2) Acute ischemic right MCA stroke: (3) Hemorrhagic cerebrovascular accident (CVA): (4) Weakness: (5) Altered mental status: History of Present Illness Reason for Consultation: Goals of care Requesting Physician: Dr. Nguyễn Attending Physician: Ion Sanchez MD History of Present Illness This is an 89 year old female who presented to the [facility] for evaluation of left-sided weakness and garbled speech. Her daughter Siri accompanied her to the ED and she does reside with her. 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 She was admitted on June 07 and received tPA. On June 08 at 1700 a repeat scan was obtained and results indicated a left occipital hemorrhagic CVA. Palliative Care was consulte d to discuss goals of care. Please see A/P for further details. Thanks for involving palliative care with this individual. Allergies Allergy/AdvReac Type Severity Reaction Status Date / Time aspirin AdvReac Severe bleeding Unverified 06/07/20 18:43 ulcer fish oil AdvReac Severe bleeding Unverified 06/07/20 18:43 ulcer Ibandronic Acid AdvReac Severe bleeding Uncoded 06/07/20 18:43 ulcer Home Medications Medication Instructions Recorded Confirmed Type atorvastatin 40 mg PO DAILY 06/07/20 06/07/20 History cholecalciferol (vitamin D3) 25 mcg PO QAM 06/07/20 06/07/20 History [Vitamin D3] ferrous sulfate 325 mg PO QAM 06/07/20 06/07/20 History hydroxyzine HCl 25 mg PO TID PRN 06/07/20 06/07/20 History memantine 10 mg PO BID 06/07/20 06/07/20 History pantoprazole 40 mg PO QAM 06/07/20 06/07/20 History sennosides [senna] 4.3 mg PO 3XWK 06/07/20 06/07/20 History Patient History Medical History Altered mental status CKD (chronic kidney disease), stage III Dementia Diet-controlled type 2 diabetes mellitus Hemorrhagic cerebrovascular accident (CVA) HLD (hyperlipidemia) HTN (hypertension) Lung mass MALT lymphoma (06/26/10) "DIAGNOSIS: Gastric MALT Lymphoma, 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 Status post completion of radiation therapy 09/10/2015 received 3000 cGy" On 09/22/15 14:15 Mallory Mujica wrote "DIAGNOSIS: Gastric MALT Lymphoma, 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 Status post completion of radiation therapy 09/10/2015 received 3000 cGy" On 07/24/15 11:44 Rose Vgea wrote "DIAGNOSIS: Gastric MALT Lymphoma, 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" Palliative care encounter Weakness Family History Brother Stroke Social History Smoking Status: Never smoker Hx Alcohol Use: No Hx Substance Use: No Preferred Language: Norwegian Communication Ability: Impaired Carry All Driver Required: No Beliefs That Will Affect Care: None Current Living Situation: Family Current Living Situation Comment: lives with daughter Other Information That Helps Us Care for You: No Feels Safe at Home: Yes Safety Concerns: Feels Safe At This Time Assistive Devices: None Review of Systems Review of Systems: Castella System Assessment Scale: Pain: 1/3 by observation Shortness of breath: 0/3 Palliative Performance Scale: 20% Physical Exam Constitutional: + acute distress (furrowed brow) and + ill appearing Eyes: + abnormal pupil size (Right pupil sluggish, left pupil reactive size 4 mm) Respiratory: normal respiratory effort Auscultation: + diminished lung sounds Cardiovascular: Heart Sounds: normal S1 and normal S2 Extremities: normal capillary refill; no edema Gastrointestinal (Abdomen): normal bowel sounds, soft, nontender, no hepatosplenomegaly Skin: no rashes, warm and dry + pallor Psychiatric: Orientation: alert (opens eyes) Results & Data ([facility]) Vital Signs (Past 12 Hours) Vital Signs Temp Pulse Resp BP Pulse Ox 06/09/20 10:00 90 18 94 06/09/20 08:29 94 H 17 93 06/09/20 08:28 100 H 13 147/121 H 95 06/09/20 08:00 36.7 C 96 H 94 06/09/20 07:00 99 H 18 94 06/09/20 05:00 95 H 17 94 06/09/20 04:01 103 H 18 93 06/09/20 04:00 93 H 16 167/77 H 97 06/09/20 03:00 87 17 94 06/09/20 02:47 100 H 17 175/82 H 73 L 06/09/20 02:00 97 H 91 06/09/20 01:00 94 H 94 06/09/20 00:00 97 H 92 PG Care Time/CCT Total # of Minutes Spent Total Time Spent with Patient: Total time spent is greater than 50% in coordination of care (as documented) at patient's floor/unit and/or counseling patient: Total time spent 70 minutes with >50% of that time spent assessing the patient, discussing goals of care with family and collaborating with IDT. Coding Level of Care Code 72417 Inpt Consult Level 3 Diagnoses Palliative care encounter Z51.5 Acute ischemic right MCA stroke I63.511 Hemorrhagic cerebrovascular accident (CVA) I61.9 Weakness R53.1 Altered mental status R41.82 Time Spent (min) 70
[2020-06-09] MEDS ORDERED: LORazepam 1 MG/2 ML VIAL IV PRN (11:59)
--- NOTE | 2020-06-09 12:49 | Billing Data ---
Date of Service June 09, 2020 Coding Level of Care Code 48067 Subseq Hosp Care Lvl 2
--- NOTE | 2020-06-09 12:59 | Hospitalist Progress Note ---
Date of Service June 09, 2020 Assessment & Plan (1) Comfort measures only status: Developed hemorrhage in the right occipital lobe on top of evolving right temporoparietal infarct Status post TPA Function has been deteriorating since last evening Prognosis is extremely poor The daughter was contacted by benefits specialist recruiter and the patient is now comfort care only We will transfer her to medical (2) Acute ischemic right MCA stroke: -Patient presenting from home for evaluation of left-sided weakness and garbled speech. Daughter reports patient has advanced dementia at baseline. -In the ED, head CTA shows right MCA occlusion. Stroke alert was called and patient received TPA. -Daughter reports the patient is a DNR/DNI, no aggressive measures are to be performed including central line placement, pressors, invasive procedures. -Symptoms seem to be improving after TPA -Maintain systolic blood pressure < 180 -Repeat head CT in 24 hours -MRI has been ordered -Awaiting neurology input and recommendation -Remains hemodynamically stable -Has not been moving left-sided extremities, no facial asymmetry, eyes deviated to the right -Overall condition has been deteriorating Developed hemorrhage in the right occipital lobe Status post TPA Function has been deteriorating since last evening The daughter was contacted by benefits specialist recruiter and the patient is now comfort care only We will transfer her to medical (3) Abnormal urinalysis: -UA suggest possible UTI -S/p IV ceftriaxone in the ED, continue with -Urine culture is growing gram-negative bacilli further sensitivities and identification are pending -Has been on comfort care since this morning (4) Diet-controlled type 2 diabetes mellitus: -Hgb A1c 7.1 02/2020 -Hyperglycemic protocol per ICU (5) MALT lymphoma: -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 -S/p Rituxan therapy 2010, radiation therapy to the stomach 2015 -PET scan 2013 showed right upper lobe lung mass 3.4 cm x 2.4 cm -Right upper lobe mass noted on neck CT today measured 27 mm -Under observation, no active treatment (6) CKD (chronic kidney disease), stage III: -Baseline creatinine runs in the mid 1's -Noted to be 1.3 today -Avoid nephrotoxic agents when able, follow renal functions -Creatinine is stable at 1.37 (7) DVT prophylaxis: -SCDs due to receiving TPA CODE STATUS DNR/DNI Prognosis remains very poor Tried to call the daughter since last evening, multiple attempts failed The cardroom manager did talk to the daughter last night and also this morning The patient is made comfort care only We will transfer her to medical floor for continuation of comfort care Admission and Anticipated Discharge Date Admission Date: June 07, 2020 Subjective 06/08/2020 The patient was seen and examined in the ICU She is status post TPA for acute stroke Answering only to simple questions Not been moving her left-sided extremities at all 06/09/2020 The patient was seen and examined in ICU She is status post TPA for acute stroke and status post hemorrhage in left occipital lobe Condition has deteriorated since yesterday She is not in any acute distress but remains unresponsive Review of Systems Review of Systems: Unobtainable due to reduced consciousness Physical Exam Physical Exam: Lying in bed with minimal distress and is minimally responsive Constitutional: + ill appearing and average body habitus ENMT: external ear and nose normal, oropharynx normal Neck: trachea midline, no thyromegaly Respiratory: + respiratory distress Auscultation: + diminished lung sounds Cardiovascular: Rate/Rhythm: regular rate and regular rhythm Heart Sounds: + murmur (2/6 ESM) Extremities: no edema Gastrointestinal (Abdomen): Inspection/Auscultation: normal bowel sounds; abdomen not distended Percussion/Palpation: abdomen soft Neurologic: Remains minimally responsive. Moving the right side occasionally and spontaneously. Results & Data Results & Data ([facility]) Vital Signs (Past 12 Hours) Vital Signs Temp Pulse Resp BP Pulse Ox 06/09/20 10:00 90 18 94 06/09/20 08:29 94 H 17 93 06/09/20 08:28 100 H 13 147/121 H 95 06/09/20 08:00 36.7 C 96 H 94 06/09/20 07:00 99 H 18 94 06/09/20 05:00 95 H 17 94 06/09/20 04:01 103 H 18 93 06/09/20 04:00 93 H 16 167/77 H 97 06/09/20 03:00 87 17 94 06/09/20 02:47 100 H 17 175/82 H 73 L 06/09/20 02:00 97 H 91 06/09/20 01:00 94 H 94 Laboratory Results Short CBC 06/09/20 Range/Units 04:32 WBC 22.99 H (4.8-10.8) K/uL Hgb 13.6 (12.0-16.0) g/dL Hct 41.9 (37-47) % Plt Count 275 (130-400) K/uL BMP 06/08/20 06/08/20 06/09/20 18:44 19:47 04:32 Sodium 139 Potassium 3.8 3.9 Chloride 107 Carbon Dioxide 25 BUN 26 H Creatinine 1.42 H Glucose 185 H Calcium 8.9 Medications Administered Current Inpatient Medications Atropine Sulfate (Atropine Sulfate 1% Op Soln 5 Ml Btl) 4 drops OP Q3H PRN PRN Reason: secretions Stop: 07/09/20 12:04 Lorazepam (Ativan) 1 mg in 2 mls @ 2 mls/min IV Q4H PRN PRN Reason: agitation or seizures Stop: 07/09/20 11:58 Morphine Sulfate (Morphine Sulfate 5 Mg/0.25 Ml Udp) 5 mg PO Q2H PRN PRN Reason: Pain Stop: 06/23/20 11:58
[2020-06-09] MEDS: ATROPINE SULFATE 1% OP SOLN 5 ML BTL OP PRN ×2 (16:31→20:57)
--- NOTE | 2020-06-09 16:52 | Communication Note ---
Date of Service: June 09, 2020 Siri has been moved up to the third floor and is now a DNR. Her CAT scan showed an area of hemorrhage in the right occipital lobe extending deep into the basal ganglia region and she now has even more tonic head and eye deviation of the right, and emerging more flaccid hemiparesis on the left and cannot be aroused to respond Neurology is going to withdraw from her care. She clearly needs supportive care only and no more aggressive management Clearly she does not need any form of antiplatelet therapy or other anticoagulation at this time Should she survive however then we can readdress the issue I am not optimistic that she will Jacky Stearns MD
[2020-06-10] MEDS: MoRPHine SULFATE 5 MG/0.25 ML UDP PO PRN ×2 (11:06→14:08)
--- NOTE | 2020-06-10 14:22 | Hospitalist Progress Note ---
Date of Service June 10, 2020 Assessment & Plan (1) Comfort measures only status: Developed hemorrhage in the right occipital lobe on top of evolving right temporoparietal infarct Status post TPA Function has been deteriorating since last evening Prognosis is extremely poor The daughter was contacted by cardiology clinical nurse specialist and the patient is now comfort care only Remains critical and on comfort measures only Will have pain medications and anxiety medications as needed to keep her comfortable Discussed the daughter about the above measures Below are the subsequent hospital events following admission: (2) Acute ischemic right MCA stroke: -Patient presenting from home for evaluation of left-sided weakness and garbled speech. Daughter reports patient has advanced dementia at baseline. -In the ED, head CTA shows right MCA occlusion. Stroke alert was called and patient received TPA. -Daughter reports the patient is a DNR/DNI, no aggressive measures are to be performed including central line placement, pressors, invasive procedures. -Symptoms seem to be improving after TPA -Maintain systolic blood pressure < 180 -Repeat head CT in 24 hours -MRI has been ordered -Awaiting neurology input and recommendation -Remains hemodynamically stable -Has not been moving left-sided extremities, no facial asymmetry, eyes deviated to the right -Overall condition has been deteriorating Developed hemorrhage in the right occipital lobe Status post TPA Function has been deteriorating since last evening The daughter was contacted by cardiology clinical nurse specialist and the patient is now comfort care only We will transfer her to medical (3) Abnormal urinalysis: -UA suggest possible UTI -S/p IV ceftriaxone in the ED, continue with -Urine culture is growing gram-negative bacilli further sensitivities and identification are pending -Has been on comfort care since this morning (4) Diet-controlled type 2 diabetes mellitus: -Hgb A1c 7.1 02/2020 -Hyperglycemic protocol per ICU (5) MALT lymphoma: -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 -S/p Rituxan therapy 2010, radiation therapy to the stomach 2015 -PET scan 2013 showed right upper lobe lung mass 3.4 cm x 2.4 cm -Right upper lobe mass noted on neck CT today measured 27 mm -Under observation, no active treatment (6) CKD (chronic kidney disease), stage III: -Baseline creatinine runs in the mid 1's -Noted to be 1.3 today -Avoid nephrotoxic agents when able, follow renal functions -Creatinine is stable at 1.37 (7) DVT prophylaxis: -SCDs due to receiving TPA CODE STATUS DNR/DNI Prognosis remains very poor Tried to call the daughter since last evening, multiple attempts failed The mechanical maintenance instructor did talk to the daughter last night and also this morning The patient is made comfort care only We will transfer her to medical floor for continuation of comfort care Admission and Anticipated Discharge Date Admission Date: June 07, 2020 Subjective 06/08/2020 The patient was seen and examined in the ICU She is status post TPA for acute stroke Answering only to simple questions Not been moving her left-sided extremities at all 06/09/2020 The patient was seen and examined in ICU She is status post TPA for acute stroke and status post hemorrhage in left occipital lobe Condition has deteriorated since yesterday She is not in any acute distress but remains unresponsive 06/10/2020 The patient was seen and examined in medical floor She remains critical but stable Review of Systems Review of Systems: Unobtainable due to reduced consciousness Physical Exam Physical Exam: She remains unresponsive with occasional involuntary movements of right extremities. She moans occasionally with tachypnea.
--- NOTE | 2020-06-10 15:01 | Palliative Care Progress Note ---
Date of Service June 10, 2020 Assessment & Plan (1) Palliative care encounter: I spoke with Siri's daughter, Siri, at bedside. It appears that her mother is uncomfortable with furrowed brow and restlessness. Discussed routine dosing of morphine for more consistent level of analgesia. She is agreeable to this. Continue prn dosing for care and breakthrough discomfort. Continue atropine for secretions. She is likely to within the next few days. (2) Hemorrhagic cerebrovascular accident (CVA): (3) Acute ischemic right MCA stroke: Admission and Anticipated Discharge Date Admission Date: June 07, 2020 Subjective No response to voice or touch. She has furrowed brow and is restless. She had one dose of morphine earlier for restlessness. Review of Systems Review of Systems: Unobtainable due to reduced consciousness Physical Exam Constitutional: + frail appearing; + uncomfortable ENMT: Mouth: + dry oral mucous membranes Respiratory: normal respiratory effort no audible rhonchi Skin: no mottling Neurologic: + obtunded PG Care Time/CCT Total # of Minutes Spent Total Time Spent with Patient: Total time spent is greater than 50% in coordination of care (as documented) at patient's floor/unit and/or counseling patient: Coding Level of Care Code 94964 Subseq Hosp Care Lvl 2 Diagnoses Palliative care encounter Z51.5 Hemorrhagic cerebrovascular accident (CVA) I61.9 Acute ischemic right MCA stroke I63.511
[2020-06-10] MEDS: MoRPHine SULFATE 5 MG/0.25 ML UDP PO SCH ×2 (15:25→19:55)
[2020-06-10] MEDS: ATROPINE SULFATE 1% OP SOLN 5 ML BTL OP PRN ×2 (17:06→20:21)
[2020-06-10] MEDS: MoRPHine SULFATE 2 MG/ML CARP IV PRN ×2 (21:05→23:02)
[2020-06-10] MEDS ORDERED: STAT IV Infusion **Titration per Protocol STA (22:52)
[2020-06-10] MEDS ORDERED: MoRPHine SULF/NSS 250 MG/250 ML BTL IV SCH (23:00)
--- NOTE | 2020-06-11 08:58 | Discharge Summary ---
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 History is unobtainable from the patient. Daughter is the bedside who provides the history. She reports the patient has very advanced dementia at baseline. Typically patient will ambulate with a walker. This afternoon, daughter reports she heard the patient attempting to get out of bed. When she went to check on her, she noted she was not moving the left side of her body and her speech was very garbled. Patient was then brought to the ED for further evaluation. In the ED, head CTA shows Occlusion of the right middle cerebral artery. Stroke alert was called and patient received TPA. Labs are unremarkable. UA suggest possible UTI. Patient was given IV ceftriaxone. Admission Exam Per Admitting Provider Constitutional: WD/WN, vitals as above Eyes: PERRL, conjunctivae normal, anicteric sclerae ENMT: external ear and nose normal, oropharynx normal Respiratory: normal respiratory effort, lungs clear to auscultation Cardiovascular: Rate/Rhythm: regular rate and regular rhythm Vessels: normal peripheral pulses Extremities: no edema Gastrointestinal (Abdomen): normal bowel sounds, soft, nontender, no hepatosplenomegaly Musculoskeletal: Extremities: no cyanosis and no clubbing Does not appropriately follow commands to test strength Skin: no rashes, warm and dry Neurologic: awake; + does not move all extremities Speech / Cognition: + abnormal speech (Garbled speech) Cranial Nerves: PERRL; + EOM not intact (Right-sided gaze) Left-sided neglect, does not follow commands to complete neurologic exam, moving right arm and leg, squeezes with right hand, not moving left leg,+ strength in left arm with resistance however no purposeful movement Psychiatric: Orientation: alert; + not oriented x 3 Principal Diagnosis at 0050 hrs on 06/11/2020. Causes of and Contributing factors: (1) Comfort measures only status: (2) Acute ischemic right MCA stroke: (3) Abnormal urinalysis: (4) Diet-controlled type 2 diabetes mellitus: (5) MALT lymphoma: (6) CKD (chronic kidney disease), stage III: Family members were notified. Discharge Exam Constitutional + ill appearing and average body habitus ENMT external ear and nose normal, oropharynx normal Neck trachea midline, no thyromegaly Respiratory + respiratory distress Auscultation: + diminished lung sounds Cardiovascular Rate/Rhythm: regular rate and regular rhythm Heart Sounds: + murmur (2/6 ESM) Extremities: no edema Gastrointestinal (Abdomen) Inspection/Auscultation: normal bowel sounds; abdomen not distended Percussion/Palpation: abdomen soft Discharge Data Allergies Allergy/AdvReac Type Severity Reaction Status Date / Time aspirin AdvReac Severe bleeding Unverified 06/07/20 18:43 ulcer fish oil AdvReac Severe bleeding Unverified 06/07/20 18:43 ulcer Ibandronic Acid AdvReac Severe bleeding Uncoded 06/07/20 18:43 ulcer Consultations 06/07/20 18:38 ED Decision to Admit Stat 06/07/20 21:30 Consult Integration Developer Routine Consult Neurology Routine 06/09/20 11:12 Consult Palliative Care Routine Ordered Studies 06/07/20 17:35 CT angio head w con Stat CT angio neck with con Stat CT head/brain wo con Stat 06/08/20 17:00 CT head/brain wo con Urgent Hospital Course (1) Comfort measures only status: Developed hemorrhage in the Left occipital lobe on top of evolving right temporoparietal infarct Status post TPA Function has been deteriorating since last evening Prognosis is extremely poor The daughter was contacted by franchise specialist and the patient is now comfort care only Remains critical and on comfort measures only Will have pain medications and anxiety medications as needed to keep her comfortable Discussed the daughter about the above measures Below are the subsequent hospital events following admission: (2) Acute ischemic right MCA stroke: -Patient presenting from home for evaluation of left-sided weakness and garbled speech. Daughter reports patient has advanced dementia at baseline. -In the ED, head CTA shows right MCA occlusion. Stroke alert was called and patient received TPA. -Daughter reports the patient is a DNR/DNI, no aggressive measures are to be performed including central line placement, pressors, invasive procedures. -Symptoms seem to be improving after TPA -Maintain systolic blood pressure < 180 -Repeat head CT in 24 hours -MRI has been ordered -Awaiting neurology input and recommendation -Remains hemodynamically stable -Has not been moving left-sided extremities, no facial asymmetry, eyes deviated to the right -Overall condition has been deteriorating Developed hemorrhage in the right occipital lobe Status post TPA Function has been deteriorating since last evening The daughter was contacted by franchise specialist and the patient is now comfort care only We will transfer her to medical (3) Abnormal urinalysis: -UA suggest possible UTI -S/p IV ceftriaxone in the ED, continue with -Urine culture is growing gram-negative bacilli further sensitivities and identification are pending -Has been on comfort care since this morning (4) Diet-controlled type 2 diabetes mellitus: -Hgb A1c 7.1 02/2020 -Hyperglycemic protocol per ICU (5) MALT lymphoma: -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 -S/p Rituxan therapy 2010, radiation therapy to the stomach 2015 -PET scan 2013 showed right upper lobe lung mass 3.4 cm x 2.4 cm -Right upper lobe mass noted on neck CT today measured 27 mm -Under observation, no active treatment (6) CKD (chronic kidney disease), stage III: -Baseline creatinine runs in the mid 1's -Noted to be 1.3 today -Avoid nephrotoxic agents when able, follow renal functions -Creatinine is stable at 1.37 (7) DVT prophylaxis: -SCDs due to receiving TPA CODE STATUS DNR/DNI Prognosis remains very poor Tried to call the daughter since last evening, multiple attempts failed The quantitative analyst marketing did talk to the daughter last night and also this morning The patient is made comfort care only We will transfer her to medical floor for continuation of comfort care Total Time Total Time Spent Total Time Spent (In Minutes): 20 minutes Total Time Includes: Other Discharge Plan Discharge Items Patient Disposition: Discharge Diagnosis: (1) Comfort measures only status: (2) Acute ischemic right MCA stroke: (3) Abnormal urinalysis: (4) Diet-controlled type 2 diabetes mellitus: (5) MALT lymphoma: (6) CKD (chronic kidney disease), stage III: Addtl Attending Provider Instructions: Family members notified
--- NOTE | 2020-06-11 09:04 | Death Pronouncement Note ---
Date of Service June 11, 2020 Pronouncement Note Admission Date Admission Date: June 07, 2020 Date and Time of Date of : 06/11/20 Time of : 00:50 Contributing Factors (1) Comfort measures only status: (2) Acute ischemic right MCA stroke: (3) Abnormal urinalysis: (4) Diet-controlled type 2 diabetes mellitus: (5) MALT lymphoma: (6) CKD (chronic kidney disease), stage III: (7) DVT prophylaxis: Additional Data Confirmation of : no pulse, no respirations, no heart sounds and pupils fixed and dilated Family: contacted Attending physician: Ion Sanchez MD
== END 2020-06-11 02:00 | disposition expired | DRG 61 ==
LOC: ED 17:19 → SUATTDRO 18:45 → 1E 18:45 → 3N 06-09 12:31